=== PATIENT | male | born 1945 | race African-American/Black ===

== ENCOUNTER 2020-12-05 10:38 | Emergency (ER) | payer MEDICARE, SELFPAY ==
[2020-12-05 11:21] VITALS: BP 185/85; PULSE 62; RESP 17; TEMP 36.6; O2SAT 99; BMI 24.3
--- NOTE | 2020-12-05 11:29 | W.ED.EXTPRO ---
HPI - Extremity Problem General: Chief complaint: Extremity Injury, Lower Stated complaint: LEFT FOOT INJURY STEPPED ON NAIL Time Seen by Provider: 12/05/20 10:46 History of Present Illness: HPI Narrative: Patient stepped on nail approximately 3 hours ago and the nail went through his work boot into the sole of his foot. Patient's tetanus is not up-to-date. Complaint: other Onset (ago): hour(s) Location: left Severity scale (1-10): 1 Associated symptoms: Reports no associated symptoms; Deny fever(s) Review of Systems Const: Denies: fever(s) or chills Musc: Reports: other (Stepped on nail with left foot did have boots on.); Denies: extremity pain Psych: Denies: anxiety or depression Physical Exam Const: COMMON NORMALS: no acute distress GENERAL APPEARANCE: cooperative Psych: COMMON NORMALS: mental status grossly normal Skin: OTHER: Left foot with puncture wound lateral border sole of foot midfoot area. No active bleeding no swelling or erythema noted. No foreign body seen. Course Vital Signs: Vital signs: Vital Signs Temperature 97.9 F 12/05/20 11:21 Pulse Rate 62 12/05/20 11:21 Respiratory Rate 17 12/05/20 11:21 Blood Pressure 185/85 12/05/20 11:21 Pulse Oximetry 99 12/05/20 11:21 Discharge Plan Discharge Patient Disposition: Home Clinical Impression: Puncture wound of foot Qualifiers: Encounter type: initial encounter Laterality: left Qualified Code(s): S91.332A - Puncture wound without foreign body, left foot, initial encounter Condition: Stable Prescriptions: New Augmentin 875-125 mg tablet 1 tab PO BID Qty: 14 RF: 0 Discharge Orders: Discharge ED (Routine); Ordered 12/05/20 Ordered By: Edmundo Singer Discharge Diet: Usual diet Discharge Activity: Resume usual activity Patient Instructions: Puncture Wound in the Foot (ED) Activity Restrictions/Additional Instructions: Follow-up with medical provider as directed. Take medications as prescribed. Return to the ER or your medical provider if condition worsens. Please read and understand discharge instructions. If any questions ask please. Soak foot in Epson salts three times a day for the next few days. Coding Level of Care Code ED Customer Facilities Supervisor for Marianna George
[2020-12-05 11:31] VITALS: BP 190/97; PULSE 63; RESP 18; O2SAT 99
[2020-12-05] MEDS: tetanus-dipt-pertussis 0.5 mL SDV IM (11:40)
== END 2020-12-05 11:54 | disposition home or self-care (01) ==
PROVIDERS: Emergency Provider Nurse Practitioner Family
DX: S91.332A Puncture wound without foreign body, left foot, initial encounter (principal); W45.0XXA Nail entering through skin, initial encounter; Z23 Encounter for immunization
CPT/HCPCS: 90471; 90715; 99282

== ENCOUNTER → 2020-12-17 13:12 | Outpatient (BNVA) | payer MEDICARE, SELFPAY | PROVIDERS: PCP Internal Medicine; Visit Provider Internal Medicine | DX: I25.10 Atherosclerotic heart disease of native coronary artery without angina pectoris (principal); Z86.19 Personal history of other infectious and parasitic diseases; Z85.46 Personal history of malignant neoplasm of prostate; B19.20 Unspecified viral hepatitis C without hepatic coma; R30.0 Dysuria; C61 Malignant neoplasm of prostate; Z95.1 Presence of aortocoronary bypass graft | CPT/HCPCS: 80053; 80061; 81003; 84443; 87522; G0103 ==

== ENCOUNTER → 2020-12-20 17:23 | Outpatient (BNVA) | payer MEDICARE, SELFPAY | PROVIDERS: PCP Internal Medicine; Visit Provider Internal Medicine | DX: R30.0 Dysuria (principal); C61 Malignant neoplasm of prostate | CPT/HCPCS: 84153 ==

== ENCOUNTER → 2021-01-08 15:52 | Outpatient (BNVA) | payer MEDICARE, SELFPAY | PROVIDERS: PCP Internal Medicine; Visit Provider Internal Medicine | DX: R73.9 Hyperglycemia, unspecified (principal) | CPT/HCPCS: 83036 ==

== ENCOUNTER 2021-03-08 03:13 | Emergency (ER) | payer MEDICARE, SELFPAY ==
[2021-03-08 03:23] VITALS: BP 113/74; PULSE 96; RESP 18; TEMP 37; O2SAT 100; BMI 23.6
--- NOTE | 2021-03-08 03:35 | W.ED.MALEGU ---
HPI - Male Genitourinary General: Chief complaint: Urogenital-Male Stated complaint: unable to urinate Time Seen by Provider: 03/08/21 03:19 Source: patient Mode of arrival: ambulatory Limitations: no limitations History of Present Illness: HPI Narrative: Seen [id number] male states he has a history of enlarged prostate but has not been seen in years for that he states has been having increasing difficulty urinating states he has extreme. He states that name to strain very hard and having pain and only able to urinate a little. States pain currently is a 4 out of 10 denies any testicle pain denies any vomiting diarrhea or fever. He has never had to have a Castro in the past does not see a urologist currently. Associated symptoms: Deny nausea or vomiting Review of Systems Const: Denies: fever(s), chills, body aches or change in appetite Eyes: Denies: blurry vision or eye discomfort ENMT: Denies: throat pain or dental pain Card: Denies: chest pain Resp: Denies: dyspnea GI: Denies: abdominal pain, nausea, vomiting or diarrhea : Reports: difficulty urinating Musc: Denies: neck pain or back pain Skin/Breast: Denies: rash Neuro: Denies: headache(s) Psych: Denies: depression Inderjit/Lymph: Denies: easy bruising All/Imm: Denies: urticaria PFSH ED PFSH: Family History Mother Diabetes Sister Diabetes Social History Smoking and tobacco status: former smoker Alcohol intake: former Adopted: No Marital status: Single service: Yes History of recent travel: No Physical Exam Const: COMMON NORMALS: no acute distress, patient oriented x3 and healthy appearing HENMT: COMMON NORMALS: normocephalic and atraumatic HEAD & SCALP: normocephalic and atraumatic Eye: COMMON NORMALS: Equal, round and reactive pupils present and EOMs intact bilaterally PUPIL: Yes Equal, round and reactive pupils present Neck/C-Spine: COMMON NORMALS: full ROM and supple Chest: COMMONS NORMALS: normal inspection of the chest and normal palpation of entire chest wall Resp: COMMON NORMALS: normal respiratory effort, No retractions, No use of accessory muscles and clear to auscultation bilaterally AUSCULTATION: clear to auscultation bilaterally Cardio: COMMON NORMALS: regular rate, regular rhythm and No murmurs present (Cardio) RATE: regular rate RHYTHM: regular rhythm GI: COMMON NORMALS: Normal to inspection, nondistended, normoactive bowel sounds present, Soft to palpation, non-tender and no masses PALPATION: Yes Soft to palpation Extremity: COMMON NORMALS: normal to inspection and full ROM Neuro: COMMON NORMALS: patient oriented x3, moves all extremities and no focal motor deficits Psych: COMMON NORMALS: mental status grossly normal, Normal thought process present and cooperative THOUGHT PROCESS: Normal thought process present Skin: COMMON NORMALS: no rashes or lesions noted and no wounds GENERAL SKIN EXAM: no rashes or lesions noted Course Vital Signs: Vital signs: Vital Signs Temperature 98.6 F 03/08/21 03:23 Pulse Rate 96 03/08/21 03:23 Respiratory Rate 18 03/08/21 03:23 Blood Pressure 113/74 03/08/21 03:23 Pulse Oximetry 100 03/08/21 03:23 MDM - Male MDM Narrative: Medical decision making narrative: Patient presents here with urinary retention also with acute cystitis. We will place him on antibiotics he has a Castro in place with a leg bag we will get him follow-up with urology he also has hyperglycemia here no signs of DKA vitals are normal we will get him a primary care doctor to follow. He is return if worsening he understands agrees to plan. Lab Data: Labs: Lab Results 03/08/21 03/08/21 03:57 04:25 POC Glucose 350 mg/dL H mg/dL (70-110) Urine Color Yellow (Yellow) Urine Appearance Sl cloudy A (CLEAR) Urine pH 7 (5-7) Ur Specific Gravit y 1.010 (1.005-1.030) Urine Protein 1+ H (Negative) Urine Glucose (UA) 4+ H (Normal) Urine Ketones 2+ H (Negative) Urine Blood 2+ H (Negative) Urine Nitrate Negative (Negative) Urine Bilirubin Neg (Negative) Urine Urobilinogen Norm mg/dL mg/dL (Negative) Ur Leukocyte Idalia ase 2+ H (Negative) Urine RBC 15-25 /hpf H /hpf (0-2) Urine WBC >100 /hpf H /hpf (0-5) Ur Squamous Epith Cells 0-4 /hpf H /hpf (0-5) Amorphous Sediment Not Reportable Urine Bacteria 2+ /hpf H /hpf (NONE) Discharge Plan Discharge Patient Disposition: Home Clinical Impression: Urinary retention, Acute cystitis Condition: Stable Prescriptions: New cephalexin 500 mg capsule 500 mg PO TID 7 Days Qty: 21 RF: 0 No Action tamsulosin 0.4 mg Capsule 0.4 mg PO DAILY RF: 0 Discharge Orders: Discharge ED (Routine); Ordered 03/08/21 Ordered By: Jennifer Herrera Referrals: Jose Alberto Campa MD [Primary Care Provider] - Aditya Gill MD [Physician] - 1-3 days Discharge Diet: Advance as tolerated Discharge Activity: Resume usual activity Patient Instructions: Urinary Retention in Men (ED), Urinary Tract Infection in Men (ED) Coding Level of Care Code ED Stick Roller for Marianna Fwd Exam Comprehensive
--- NOTE | 2021-03-08 04:01 | PC.NURSE ---
patient arrival with c/o decreased urine output and reports history of prostate problems. denies other problems at this time.
[2021-03-08 04:17] LABS: Add Urine Microscopic? YES; Bilirubin Urine Neg (Negative); Blood Urine 2+ (Negative); Glucose Urine UA 4+ (Normal); Ketones Urine 2+ (Negative); Leukocyte Esterase Urine 2+ (Negative); Nitrate Urine Negative (Negative); Protein Urine 1+ (Negative); Urine Color Yellow (Yellow); Urobilinogen Urine Norm (Negative); pH Urine 7 (5-7)
[2021-03-08 04:19] LABS: Add Urine Culture? Yes; Bacteria Urine 2+ /hpf; RBC Urine 15-25 /hpf (0-2); Squamous Epithelial Cell Urine 0-4 /hpf (0-5); WBC Urine >100 /hpf (0-5)
[2021-03-08 04:28] LABS: Glucose Point of Care 350 mg/dL (70-110)
--- NOTE | 2021-03-10 10:15 | DCPLANNER ---
senior national account manager had message to schedule a follow up appointment for patient with Dr. Gill. senior national account manager emailed patients information to Marcio Teixeira and Julie at the office of Dr. Gill. Patients information will be printed and reviewed. Clinic will call patient with appointment information.
--- NOTE | 2021-03-10 11:56 | DCPLANNER ---
shelter case manager had message to speak with patient about getting established with a primary care physician. shelter case manager called phone number [phone], unable to speak with patient at this time. shelter case manager did leave a voicemail for patient to return case coordinator phone call.
--- NOTE | 2021-03-11 06:55 | DCPLANNER ---
Addendum entered by Ciara Orantes 03/28/21 11:22: Patient had a follow up appointment scheduled for 03.24.[address] Gill - patient did attend appointment. Original Note: Patient has a follow up appointment scheduled for Wednesday, March 24, 2021 at 9:[address] Gill. Clinic will call patient with appointment information.
== END 2021-03-08 04:39 | disposition home or self-care (01) ==
PROVIDERS: Emergency Provider Emergency Medicine; PCP Internal Medicine
DX: N30.00 Acute cystitis without hematuria (principal); R33.9 Retention of urine, unspecified; Z87.891 Personal history of nicotine dependence
CPT/HCPCS: 36416; 51702; 81001; 82962; 87077; 87086; 87186; 99283

== ENCOUNTER → 2021-04-09 09:39 | Outpatient (BNVA) | payer MEDICARE, SELFPAY | PROVIDERS: Visit Provider Nurse Practitioner Family | DX: C61 Malignant neoplasm of prostate (principal) | CPT/HCPCS: 84153 ==

== ENCOUNTER → 2021-04-14 13:24 | Outpatient (BNVA) | payer MEDICARE, SELFPAY | PROVIDERS: Visit Provider Urology | DX: R39.9 Unspecified symptoms and signs involving the genitourinary system (principal); C61 Malignant neoplasm of prostate | CPT/HCPCS: 81003 ==

== ENCOUNTER 2021-04-30 14:32 | Outpatient (CLI) | payer MEDICARE, SELFPAY ==
--- NOTE | 2021-04-30 17:06 | ONC CON_ITS ---
Dr. Fields New Patient Note Patient: Tad Archer Unit #: [id number]: 1945 Dicatated By: Brandi Fields M.D.Date of Visit: Apr 30, 2021 Onc MED New Patient/Consult Referring Physician: Marisol Valles Dr., M.D. History of Present Illness: Mr. Tad Archer, is a 75-year-old -Malag[place] gentleman with history of Hepatitis C and prostate cancer, initially diagnosed in 2004 Armen 3+3 = 6,/12 gland, bilateral involvement, status post 3-D FURNITURE RENTAL CONSULTANT to a total dose of 7560 cGy completed in October 2004 in [facility]. He recurred in 2014 with biopsy confirmation of recurrent disease 4+5 =9 in 6 out of 6 cores and negative metastatic workup status post Eligard ???1 given in May 2015 but patient 12 severe hot flashes and he decided not to take anymore. He deferred care until May 2016 when he was started on bicalutamide patient took it for 3 days then stopped taking it but restart taking on 08/16/2016 then he was started on Eligard on 09/07/2016 plan was to give him every six-months and in the meantime patient stopped taking bicalutamide because of gynecomastia Patient lives in [place] so he was having transportation problem in getting to [place] from here and decided to establish care here in [place].,And [facility] [place] till November 09, 2017 and then lost follow-up, as per patient he was trying alternate/herbs therapy and was obtaining certain medications from [facility] and other places, he does remember the names but has tried so many different agents to 'clean' his prostate cancer, as per patient initially it helped him, he was feeling well but around 2020 he started having problem with urination and it was progressive to the point, in February 2021 he could not 'pee' anymore and decided to go to [facility] where he was evaluated and diagnosed with cystitis and treated with ciprofloxacin as urine culture grew Enterococcus, and he was also prescribed tamsulosin and Castro's cath with bag was placed in for 2 weeks and patient was referred to Dr. Gill, urologist for further evaluation and as per urology note his PSA checked in November 2020 was 116, On April 14, 2020 he underwent cystoscopy which showed prostatic architecture is not significantly changed. 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 And he was advised to continue self-catheterization along with a daily tamsulosin and was [facility] regarding progressive PSA. Today denies any specific complaints, no fever chills, no nausea or vomiting, no diarrhea or constipation, no dysuria or hematuria patient does self-catheterization 3-4 times a day, tolerating well. Denies any new bony pains denies any abdominal pain or fullness, complaining of 5 pounds weight loss but appetite is reasonable., Last time patient was seen in the clinic in July 2017 and was supposed to come back in 3 months but patient lost follow-up, as per patient he was trying alternative therapy and herbs. . Past Medical History: There is no documented medical history. Past Surgical History: Mr. Archer's surgical/procedural history consists of coronary artery bypass in 2007 and foot surgery in 1993. Medications: Ciprofloxacin HCl 1 Tablet (of 500 mg) Oral b.i.d. for 14 days, Tamsulosin HCl (0.4 mg) Capsule Oral daily Allergies: contrast dye Social History: Mr. Archer is single and he is retired. Mr. Archer quit smoking 28 years ago but had smoked 0.5 packs/day for 15 years. He is a former drinker. Family History: Mr. Archer's mother at age 80: diabetes. Mr. Archer's father at age 78: heart disease. Review Of Symptoms: Review of Systems is not available for this patient. Vital Signs: Performed on Apr 30, 2021 15:34: 7, 0, 23.98, 1.89 sq.m, 69 in (LOW), 96 %, 80 /min, 18 /min, 124/78 mm(hg), 98.7 F, and 162.4 lbs (LOW). Performance Status: 0 - Fully active, able to carry on all predisease activities without restrictions. (ECOG) Physical Examination: ENMT - No mouth sores, no thrush, no jaundice, Respiratory - Lungs are clear to auscultation, Cardiovascular - Regular rate and rhythm of heart, Abdomen - Soft, bowel sounds present, nontender, Extremities - No visible edema. Lab/Imaging: Most recent lab results are not available for this patient. Impression: Biochemical recurrence with progressive PSA PSA checked in November 2020 was 116 and repeat in March 2021 was 137, Compared to 57.60 on August 09, 2017 after that patient lost follow-up till April 2021, As patient was trying alternative/herbal therapy Prostrate cancer diagnosed in 2004 status post EB RT with 3-D conformal plan in 2014, 7560cGy completed in October 2004 Recurrence with PSA 29 in in November 2014 prostrate biopsy confirmed local recurrence with high risk prostate cancer but metastatic workup was negative Given involvement of seminal vesicle, it was decided he was a poor candidate for brachytherapy. Started on Eligard in May 2015 he took one injection and second injection was due in 6 month in November 2015 but patient refused due to hot flashes. And he was also refusing bicalutamide [place] 08/16/2016 when he started taking it but then later on stopped taking it again due to gynecomastia but took another Eligard on 09/07/2016 and next 6 monthly dose was due in February 2017 but patient did not take it. PSA checked on 04/13/2017 was 30.80 PSA checked on 05/11/[address] scan of abdomen pelvis done on 12/03/2016 showed some questionable enlarged lymph nodes and bone scan was negative Hepatitis C , on vosevi CT scan of abdomen pelvis done on 08/05/2017 showed no abdominal or pelvic lymphadenopathy and no osteoblastic bone disease and no other abnormal mass seen. Bone scan done on 08/05/2017 showed no evidence of osseous metastatic disease PSA checked on 08/05/2017 57.67 compared to 55.70 on 07/06/2017 Plan: Discussed with patient regarding his concerns about progressive PSA and now with urinary retention requiring repeated self-catheterization, Since his last visit to cancer center in July 2017, patient was trying alternative/herbal therapy until recently when he developed acute urinary obstruction for which he went to [facility], where he was diagnosed with urine tract infection with Enterococcus and treated with ciprofloxacin and Castro's cath with the back for 2 weeks subsequently underwent cystoscopy which showed mild radiation cystitis type changes but nothing severe., At this point, we will consider CT scan of chest ,abdomen pelvis and bone scan to assess disease status and repeat CBC, CMP, PSA and testosterone level and As his follow-up PSA level shows evidence of disease progression, we will start him on treatment with Zoladex 10.8 mg IM every 3 months along with abiraterone 250 mg p.o. daily and prednisone 5 mg p.o. twice a day, all the side effect possible benefits associated with Zoladex/abiraterone/prednisone was discussed in detail including but not limited to hot flashes, mood swings,Gynecomastia, fluid retention, diarrhea especially with abiraterone, hyperglycemia specially with prednisone, electrolyte imbalance with abiraterone, were mentioned further teaching will be done by chemotherapy nurse, will obtain approval from his insurance. Patient return to clinic in 3 weeks with above-mentioned work-up including CT scan of chest abdomen pelvis/bone scan/PSA/testosterone level and CBC CMP. Signed By: Brandi Fields M.D. <<Signature on File>>
[2021-04-30 17:09] LABS: Basophils % 0.5 %; Eosinophils # 0.2 10^3/uL (0.0-0.8); Eosinophils % 2.4 %; Hematocrit 44.2 % (42.0-52.0); Hemoglobin 14.6 g/dL (11.7-16.6); Lymphocytes % 37.3 %; Mean Corpuscular Hemoglobin 29.3 pg (28.0-34.0); Mean Corpuscular Volume 88.8 fl (80-94); Mean Platelet Volume 11.9 fL (7.4-10.4); Monocytes # 0.5 10^3/uL (0.2-0.9); Monocytes % 6.2 %; Neutrophils # 4.31 10^3/uL (1.8-7.7); Neutrophils % 53.4 %; Nucleated Red Blood Cells % 0 %; Platelet Count 225 10^3/cmm (130-400); Red Blood Count 4.98 10^6/uL (4.1-5.3); Red Cell Distribution Width 12.7 % (12.1-15.1); White Blood Count 8.1 10^3/uL (4.0-10.0)
[2021-04-30 17:45] LABS: Alanine Aminotransferase 18 U/L (0-41); Albumin Level 4.6 g/dL (3.5-5.2); Alkaline Phosphatase 119 IU/L (40-130); Anion Gap 13.6 (5-19); Aspartate Amino Transferase 17 U/L (0-40); Blood Urea Nitrogen 11 mg/dL (8-23); Calcium 10.5 mg/dL (8.5-10.5); Carbon Dioxide 28 mmol/L (22-29); Chloride 98 mmol/L (98-107); Globulin 2.8 g/dL (1.3-4.6); Glucose 360 mg/dL (65-115); Osmolality Calculated 294 mOsm/kg (285-295); Potassium 4.6 mmol/L (3.5-5.1); Sodium 135 mmol/L (136-145); Testosterone Total 353.9 ng/dL (193-740); Total Bilirubin 0.5 mg/dL (0.15-1.2); Total Protein 7.4 g/dL (6.6-8.7)
== END 2021-04-30 14:33 | disposition home or self-care (01) ==
PROVIDERS: PCP Internal Medicine; Visit Provider Internal Medicine Hematology & Oncology
DX: C61 Malignant neoplasm of prostate (principal); R59.1 Generalized enlarged lymph nodes; B17.9 Acute viral hepatitis, unspecified; Z79.899 Other long term (current) drug therapy
CPT/HCPCS: 80053; 84153; 84403; 85025; 99205

== ENCOUNTER 2021-05-16 07:56 | Outpatient (CLI) | payer MEDICARE, SELFPAY ==
--- NOTE | 2021-05-16 08:02 | CTR_ITS ---
PROCEDURE INFORMATION: Exam: CT Chest With Contrast; Diagnostic Exam date and time: 05/16/2021 9:44 AM Age: 75 years old Clinical indication: Condition or disease; Other: Assess disease status; Primary cancer: Gentleman with history of hepatitis c and prostate cancer, . initially diagnosed in 2004 valentino 3+3 = 6, /12 gland, bilateral involvement, . status post 3-d welt rougher to a total dose of 7560 cgy completed in October 2004; He recurred in 2014 with biopsy confirmation of recurrent. Disease 4+5 =9 in 6 out of 6 cores and negative metastatic workup status post. Eligard ?1 given in May 2015 but patient 12 severe hot flashes and he decided. Not to take anymore. He deferred care until May 2016 when he was started on. Bicalutamide patient took it for 3 days then stopped taking it but restart. Taking on 08/16/2016 then he was started on eligard on 09/07/2016 plan was to. Give him every six-months and in the meantime patient stopped taking. Bicalutamide because of gynecomastia; Follow-up oncological assessment; Prior surgery; Surgery date: 6+ months; Surgery type: Coronary artery bypass in 2007; Patient HX: Disease process TECHNIQUE: Imaging protocol: Diagnostic computed tomography of the chest with contrast. Sagittal and coronal reformatted images were created and reviewed. Radiation optimization: All CT scans at this facility use at least one of these dose optimization techniques: automated exposure control; mA and/or kV adjustment per patient size (includes targeted exams where dose is matched to clinical indication); or iterative reconstruction. Contrast material: OMNI 300; Contrast volume: 95 ml; Contrast route: INTRAVENOUS (IV); COMPARISON: 1. CT abdomen pelvis wo con [id number] 08/05/2017 8:[address] abdomen pelvis w con* [id number] 12/03/2016 9:14 AM RADIATION DOSE METRICS: Total DLP (mGy-cm): 1615.18 FINDINGS: Thyroid: Multiple heterogenous heterogenous nodules in both thyroid lobes, the largest is in the right lobe and measures 2.7 x 2.6 cm (series 3, image 4). Trachea: Tracheobronchial structures are patent. Lungs: Lungs are clear bilaterally. No pulmonary parenchymal nodules or masses. Pleural spaces: No pneumothorax. No pleural effusion. Heart: Mild enlargement of the heart. Extensive atherosclerotic calcification in the coronary arteries. Esophagus: The esophagus is unremarkable. Mediastinal space: No mediastinal hematoma. No pneumomediastinum. Pulmonary arteries: Pulmonary arteries are unremarkable. Aorta: Mild atherosclerotic changes in the visualized arteries. No evidence for aortic aneurysm or aortic dissection. Veins: Pulmonary veins are unremarkable. Lymph nodes: No lymphadenopathy. Bones/joints: Poststernotomy changes in the chest. Mild degenerative changes in the visualized spine. No lytic or sclerotic bony lesions. Soft tissues: No acute abnormality in the extrathoracic soft tissues. COMMENTS: Consistent with the [employer]'s Incidental Findings Committee white paper (J Am Kezia Radiol 2015): In patients aged 35 years and older with an incidental thyroid nodule equal to or greater than 1.[address], MRI or extrathyroidal US, further evaluation with dedicated thyroid US is recommended for patients with normal life expectancy and without comorbidities. For smaller nodules without suspicious features, no further evaluation or follow up is recommended. PROCEDURE INFORMATION: Exam: CT Abdomen And Pelvis With Contrast Exam date and time: 05/16/2021 9:44 AM Age: 75 years old Clinical indication: Condition or disease; Other: Assess disease status; Primary cancer: Gentleman with history of hepatitis c and prostate cancer, . initially diagnosed in 2004 valentino 3+3 = 6, /12 gland, bilateral involvement, . status post 3-d welt rougher to a total dose of 7560 cgy completed in October 2004; He recurred in 2014 with biopsy confirmation of recurrent. Disease 4+5 =9 in 6 out of 6 cores and negative metastatic workup status post. Eligard ?1 given in May 2015 but patient 12 severe hot flashes and he decided. Not to take anymore. He deferred care until May 2016 when he was started on. Bicalutamide patient took it for 3 days then stopped taking it but restart. Taking on 08/16/2016 then he was started on eligard on 09/07/2016 plan was to. Give him every six-months and in the meantime patient stopped taking. Bicalutamide because of gynecomastia; Follow-up oncological assessment; Prior surgery; Surgery date: 6+ months; Surgery type: Coronary artery bypass in 2007; Patient HX: Disease process TECHNIQUE: Imaging protocol: Computed tomography of the abdomen and pelvis with contrast. The patient was administered oral contrast. Radiation optimization: All CT scans at this facility use at least one of these dose optimization techniques: automated exposure control; mA and/or kV adjustment per patient size (includes targeted exams where dose is matched to clinical indication); or iterative reconstruction. Contrast material: OMNI 300; Contrast volume: 95 ml; Contrast route: INTRAVENOUS (IV); COMPARISON: 1. CT abdomen pelvis wo con [id number] 08/05/2017 8:[address] abdomen pelvis w con* [id number] 12/03/2016 9:14 AM RADIATION DOSE METRICS: Total DLP (mGy-cm): 1615.18 FINDINGS: Liver: Interval development of diffuse, mildly decreased attenuation in the liver. Findings are consistent with mild fatty infiltration. Gallbladder and bile ducts: The gallbladder is unremarkable. No biliary ductal dilatation. Pancreas: The pancreas is unremarkable. No pancreatic ductal dilatation. Spleen: The spleen is unremarkable. Adrenal glands: The right and left adrenal glands are unremarkable. Kidneys and ureters: The right and left kidneys are unremarkable. The right and left ureters are unremarkable. Stomach and bowel: Scattered diverticula in the colon. No evidence for diverticulitis. No acute abnormality in the small bowel. No acute abnormality in the stomach. Appendix: The appendix is visualized and is unremarkable. No findings to suggest acute appendicitis. Intraperitoneal space: No free intraperitoneal air. No ascites. No loculated fluid collections to suggest an abscess. Vasculature: Stable mild atherosclerotic calcifications in the visualized arteries. No evidence for aortic aneurysm or aortic dissection. Hepatic veins, portal veins, splenic vein, and SMV are patent. Lymph nodes: No lymphadenopathy. Urinary bladder: Diffuse, mild wall thickening of the bladder. Reproductive: Stable mild enlargement of the prostate gland. Bones/joints: Multilevel degenerative changes of varying severity in the visualized spine. Mild degenerative changes at both the right and left hips. No lytic or sclerotic bony lesions. Soft tissues: No acute abnormality in the extra-abdominal soft tissues. CT/CT chest abd pel w con* IMPRESSION: 1. No acute cardiopulmonary process. 2. Multiple thyroid nodules.Follow-up non-emergent thyroid ultrasound is recommended if these have not previously been evaluated. 3. No evidence for metastatic disease in the chest. 4. Incidental/nonacute findings are listed in the report. IMPRESSION: 1. Interval development of mild fatty infiltration of the liver. 2. Diffuse, mild wall thickening of the bladder. In the correct clinical setting, this may suggest cystitis. Recommend correlation with laboratory findings. Alternatively, this may be secondary to chronic outlet obstruction. 3. Stable mild enlargement of the prostate gland. 4. Scattered diverticula in the colon. No evidence for diverticulitis. 5. No evidence for metastatic disease in the abdomen or pelvis. 6. Incidental/nonacute findings are listed in the report.
[2021-05-16] MEDS: iohexol 300 mg/mL 50 mL Btl PO (08:19)
[2021-05-16] MEDS: iohexol 300 mg/mL 100 mL Btl IV (09:45)
== END 2021-05-16 07:57 | disposition home or self-care (01) ==
LOC: RAD 07:58
PROVIDERS: PCP Internal Medicine; Visit Provider Internal Medicine Hematology & Oncology
DX: C61 Malignant neoplasm of prostate (principal); K76.0 Fatty (change of) liver, not elsewhere classified; N40.0 Benign prostatic hyperplasia without lower urinary tract symptoms; K57.92 Diverticulitis of intestine, part unspecified, without perforation or abscess without bleeding
CPT/HCPCS: 71260; 74177

== ENCOUNTER 2021-05-26 10:38 | Outpatient (CLI) | payer MEDICARE, SELFPAY ==
[2021-05-26] MEDS: lidocaine 1% INJ 20 mL INJECTION (12:15)
[2021-05-26] MEDS: goserelin acetate 10.8 mg Implant SUBCUT (12:20)
[2021-05-26 12:34] LABS: Basophils # 0.1 10^3/uL (0.0-0.1); Basophils % 0.6 %; Eosinophils # 0.3 10^3/uL (0.0-0.8); Eosinophils % 3.1 %; Hematocrit 46.9 % (42.0-52.0); Hemoglobin 15.2 g/dL (11.7-16.6); Lymphocytes # 3.1 10^3/uL (0.8-4.8); Lymphocytes % 38.4 %; Mean Corpuscular HGB Conc 32.4 g/dL (30.0-36.0); Mean Corpuscular Hemoglobin 28.9 pg (28.0-34.0); Mean Corpuscular Volume 89.2 fl (80-94); Mean Platelet Volume 11.2 fL (7.4-10.4); Monocytes # 0.5 10^3/uL (0.2-0.9); Monocytes % 5.6 %; Neutrophils # 4.14 10^3/uL (1.8-7.7); Neutrophils % 51.8 %; Nucleated Red Blood Cells % 0 %; Platelet Count 226 10^3/cmm (130-400); Red Blood Count 5.26 10^6/uL (4.1-5.3); Red Cell Distribution Width 12.7 % (12.1-15.1)
[2021-05-26 12:56] LABS: Estmated Average Glucose 332; Hemoglobin A1C 13.2 % (4.0-6.0)
[2021-05-26 12:59] LABS: Alanine Aminotransferase 18 U/L (0-41); Albumin Level 4.6 g/dL (3.5-5.2); Alkaline Phosphatase 143 IU/L (40-130); Blood Urea Nitrogen 6 mg/dL (8-23); Calcium 10.2 mg/dL (8.5-10.5); Carbon Dioxide 28 mmol/L (22-29); Chloride 100 mmol/L (98-107); Globulin 2.8 g/dL (1.3-4.6); Glucose 319 mg/dL (65-115); Osmolality Calculated 292 mOsm/kg (285-295); Sodium 136 mmol/L (136-145); Total Bilirubin 0.8 mg/dL (0.15-1.2); Total Protein 7.4 g/dL (6.6-8.7)
[2021-05-26 13:11] LABS: Anion Gap 12.8 (5-19); Aspartate Amino Transferase 20 U/L (0-40); Potassium 4.8 mmol/L (3.5-5.1)
--- NOTE | 2021-05-30 08:20 | ONC FU_ITS ---
Florina Osullivan Progress Note Patient: Tad Archer Unit #: [id number]: 1945 Dicatated By: Florina Osullivan N.P.Date of Visit:May 26, 2021 Onc MED Follow-up/Prog Note Chief Complaint: Prostrate cancer History of Present Illness: Mr. Tad Archer, is a 75-year-old -[place] gentleman with history of Hepatitis C and prostate cancer, initially diagnosed in 2004 [place] 3+3 = 6,/12 gland, bilateral involvement, status post 3-D AREA COUNSELOR to a total dose of 7560 cGy completed in October 2004 in [facility]. He recurred in 2014 with biopsy confirmation of recurrent disease 4+5 =9 in 6 out of 6 cores and negative metastatic workup status post Eligard ???1 given in May 2015 but patient 12 severe hot flashes and he decided not to take anymore. He deferred care until May 2016 when he was started on bicalutamide patient took it for 3 days then stopped taking it but restart taking on 08/16/2016 then he was started on Eligard on 09/07/2016 plan was to give him every six-months and in the meantime patient stopped taking bicalutamide because of gynecomastia Patient lives in [place] so he was having transportation problem in getting to [place] from here and decided to establish care here in [place].,And [facility] [place] till November 09, 2017 and then lost follow-up, as per patient he was trying alternate/herbs therapy and was obtaining certain medications from [facility] and other places, he does remember the names but has tried so many different agents to 'clean' his prostate cancer, as per patient initially it helped him, he was feeling well but around 2020 he started having problem with urination and it was progressive to the point, in February 2021 he could not 'pee' anymore and decided to go to [facility] where he was evaluated and diagnosed with cystitis and treated with ciprofloxacin as urine culture grew Enterococcus, and he was also prescribed tamsulosin and Castro's cath with bag was placed in for 2 weeks and patient was referred to Dr. Gill, urologist for further evaluation and as per urology note his PSA checked in November 2020 was 116, On April 14, 2020 he underwent cystoscopy which showed prostatic architecture is not significantly changed. 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 And he was advised to continue self-catheterization along with a daily tamsulosin and was [facility] regarding progressive PSA. Patient presents today for education on abiraterone. He denies any problems. No weakness or fatigue. His appetite has been good. No fever, chills, night sweats. No sinus drainage or mouth sores. No shortness of breath, cough, chest pain. No GI problems. He continues self catheterizations 4-5 times per day. No joint or bone pain. No headaches or dizziness. Review Of Symptoms: See above. Past Medical History: There is no documented medical history. Past Surgical History: Covid booster - CRAiLAR in 2021 Coronary artery bypass in 2007 Foot surgery in 1993 Allergies: contrast dye Medications: Tamsulosin HCl (0.4 mg) Capsule Oral daily Family History: Mr. Archer's mother at age 80: diabetes. Mr. Archer's father at age 78: heart disease. Social History: Mr. Archer is single and he is retired. Mr. Archer quit smoking 28 years ago but had smoked 0.5 packs/day for 15 years. He is a former drinker. Physical Examination: Performed on May 26, 2021 10:55: Height - 69.00 in, Weight - 162.6 lbs (HIGH), BSA - 1.89 sq.m, BMI - 24.01, Temperature - 98.0 F (LOW), Pulse - 64 /min, Respiration - 16 /min, BP - 144/84 mm(hg) (HIGH), O2 Sat - 99 %, Pain - 0, and Fatigue - 4. Performance Status: 0 - Fully active, able to carry on all predisease activities without restrictions. (ECOG) Constitutional Alert, cooperative, oriented. Mood and affect appropriate. Appears close to chronological age. Well nourished. Well developed. Head Normocephalic; no scars. Respiratory Lungs are clear to auscultation without rhonchi or wheezing. Cardiovascular Regular rate and rhythm of heart without murmurs, gallops or rubs. Abdomen Non-tender, non-distended, no masses, ascites or hepatosplenomegaly. Good bowel sounds. No guarding or rebound tenderness. Extremities No visible deformities, no cyanosis, clubbing or edema. Pulses 3+ and equal bilaterally. Musculoskeletal No tenderness or swelling, normal range of motion without obvious weakness. Psychiatric Alert and oriented times three. Coherent speech. Verbalizes understanding of our discussions today. Laboratory: Test performed on May 26, 2021 12:20 Sodium 136 mmol/L Potassium 4.8 mmol/L Chloride 100 mmol/L Est Avg Glucose (eAG) 332 mg/dL CO2 28 mmol/L Anion Gap 12.8 BUN 6 mg/dL Creatinine 0.8 mg/dL Cr Clearance (Est) 83.2300 mL/min Glucose 319 mg/dL Osmolality - Calculated 292 mOsm/kg Calcium 10.2 mg/dL Protein, Total 7.4 g/dL Albumin 4.6 g/dL Globulin 2.8 g/dL Bilirubin, Total 0.8 mg/dL ALT (SGPT) 18 U/L AST (SGOT) 20 U/L Alkaline Phosphatase 143 IU/L Hemoglobin A1C % 13.2 % WBC 8.0 10 3/uL RBC 5.26 10 6/uL HGB 15.2 g/dL HCT 46.9 % MCV 89.2 fl MCH 28.9 pg MCHC 32.4 g/dL RDW 12.7 % Platelet Count 226 10 3/cmm MPV 11.2 fL Neutrophils 4.14 10 3/uL Lymphocytes 3.1 10 3/uL Monocytes 0.5 10 3/uL Eosinophils 0.3 10 3/uL Basophils 0.1 10 3/uL Neutrophil % 51.8 % Lymphocyte % 38.4 % Monocyte % 5.6 % Eosinophil % 3.1 % Basophils % 0.6 % NRBC % 0 % PSA 135.800 ng/mL Impression: Biochemical recurrence with progressive PSA PSA checked in November 2020 was 116 and repeat in March 2021 was 137, Compared to 57.60 on August 09, 2017 after that patient lost follow-up till April 2021, As patient was trying alternative/herbal therapy Prostrate cancer diagnosed in 2004 status post EB RT with 3-D conformal plan in 2014, 7560cGy completed in October 2004 Recurrence with PSA 29 in in November 2014 prostrate biopsy confirmed local recurrence with high risk prostate cancer but metastatic workup was negative Given involvement of seminal vesicle, it was decided he was a poor candidate for brachytherapy. Started on Eligard in May 2015 he took one injection and second injection was due in 6 month in November 2015 but patient refused due to hot flashes. And he was also refusing bicalutamide [place] 08/16/2016 when he started taking it but then later on stopped taking it again due to gynecomastia but took another Eligard on 09/07/2016 and next 6 monthly dose was due in February 2017 but patient did not take it. PSA checked on 04/13/2017 was 30.80 PSA checked on 05/11/[address] scan of abdomen pelvis done on 12/03/2016 showed some questionable enlarged lymph nodes and bone scan was negative Hepatitis C , on vosevi CT scan of abdomen pelvis done on 08/05/2017 showed no abdominal or pelvic lymphadenopathy and no osteoblastic bone disease and no other abnormal mass seen. Bone scan done on 08/05/2017 showed no evidence of osseous metastatic disease PSA checked on 08/05/2017 57.67 compared to 55.70 on 07/06/2017 Plan: Discussed with patient regarding his concerns about progressive PSA and now with urinary retention requiring repeated self-catheterization, Since his last visit to cancer center in July 2017, patient was trying alternative/herbal therapy until recently when he developed acute urinary obstruction for which he went to [facility], where he was diagnosed with urine tract infection with Enterococcus and treated with ciprofloxacin and Castro's cath with the back for 2 weeks subsequently underwent cystoscopy which showed mild radiation cystitis type changes but nothing severe., At this point, we will consider CT scan of chest ,abdomen pelvis and bone scan to assess disease status and repeat CBC, CMP, PSA and testosterone level and As his follow-up PSA level shows evidence of disease progression, we will start him on treatment with Zoladex 10.8 mg IM every 3 months along with abiraterone 250 mg p.o. daily and prednisone 5 mg p.o. twice a day He presents today for education on abiraterone 250 mg p.o. daily along with prednisone 5 mg p.o. twice a day. Handouts were provided along with side effects including hyperglycemia. Patient is a type II diabetic that is not controlled and not being treated. Prior to starting treatment with abiraterone his type 2 diabetes needs to be a little better controlled. We will start him on a sliding scale insulin along with Lantus 10 units at bedtime. Education was provided about diabetes and how to use Accu-Chek machine and how to administer insulin. Patient will return to the clinic on 05/30/2021 to reassess blood glucose levels. DATE OF ADDENDUM: 05/30/2021 ADDENDUM: Hemoglobin A1c was checked and is 13.2 Signed By: Florina Osullivan N.P. <<Signature on File>>
== END 2021-05-26 10:39 | disposition home or self-care (01) ==
PROVIDERS: PCP Internal Medicine; Visit Provider Nurse Practitioner Family
DX: C61 Malignant neoplasm of prostate (principal); B19.20 Unspecified viral hepatitis C without hepatic coma; E11.9 Type 2 diabetes mellitus without complications; Z79.899 Other long term (current) drug therapy; Z95.1 Presence of aortocoronary bypass graft
CPT/HCPCS: 80053; 83036; 84153; 85025; 96372; 96402; 99215; J9202

== ENCOUNTER 2021-05-30 08:37 | Outpatient (CLI) | payer MEDICARE, SELFPAY ==
--- NOTE | 2021-06-01 15:08 | ONC FU_ITS ---
Florina Osullivan Progress Note Patient: Tad Archer Unit #: [id number]: 1945 Dicatated By: Florina Osullivan N.P.Date of Visit:May 30, 2021 Onc MED Follow-up/Prog Note Chief Complaint: Prostrate cancer History of Present Illness: Mr. Tad Archer, is a 75-year-old -[place] gentleman with history of Hepatitis C and prostate cancer, initially diagnosed in 2004 [place] 3+3 = 6,/12 gland, bilateral involvement, status post 3-D PALEONTOLOGICAL HELPER to a total dose of 7560 cGy completed in October 2004 in [facility]. He recurred in 2014 with biopsy confirmation of recurrent disease 4+5 =9 in 6 out of 6 cores and negative metastatic workup status post Eligard ???1 given in May 2015 but patient 12 severe hot flashes and he decided not to take anymore. He deferred care until May 2016 when he was started on bicalutamide patient took it for 3 days then stopped taking it but restart taking on 08/16/2016 then he was started on Eligard on 09/07/2016 plan was to give him every six-months and in the meantime patient stopped taking bicalutamide because of gynecomastia Patient lives in [place] so he was having transportation problem in getting to [place] from here and decided to establish care here in [place].,And continue [facility] [place] till November 09, 2017 and then lost follow-up, as per patient he was trying alternate/herbs therapy and was obtaining certain medications from [facility] and other places, he does remember the names but has tried so many different agents to 'clean' his prostate cancer, as per patient initially it helped him, he was feeling well but around 2020 he started having problem with urination and it was progressive to the point, in February 2021 he could not 'pee' anymore and decided to go to [facility] where he was evaluated and diagnosed with cystitis and treated with ciprofloxacin as urine culture grew Enterococcus, and he was also prescribed tamsulosin and Castro's cath with bag was placed in for 2 weeks and patient was referred to Dr. Gill, urologist for further evaluation and as per urology note his PSA checked in November 2020 was 116, On April 14, 2020 he underwent cystoscopy which showed prostatic architecture is not significantly changed. 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 And he was advised to continue self-catheterization along with a daily tamsulosin and was [facility] regarding progressive PSA. Patient presents today for follow-up on his blood glucose levels. He is currently taking sliding scale insulin and Lantus at 10 units at bedtime. He states he is feeling well and he is trying to follow a diabetic diet. He denies weakness or fatigue. No fever, chills, night sweats. No shortness of breath or cough. No chest pain. No GI problems. He self caths 4-5 times per day. He denies joint or bone pain. No headaches or dizziness. . Review Of Symptoms:Review of Systems is not available for this patient. Past Medical History: There is no documented medical history. Past Surgical History: Covid [employer] - [employer] in 2021 Coronary artery bypass in 2007 Foot surgery in 1993 Allergies: contrast dye Medications: Tamsulosin HCl (0.4 mg) Capsule Oral daily Family History: Mr. Archer's mother at age 80: diabetes. Mr. Archer's father at age 78: heart disease. Social History: Mr. Archer is single and he is retired. Mr. Archer quit smoking 28 years ago but had smoked 0.5 packs/day for 15 years. He is a former drinker. Physical Examination: Performed on May 30, 2021 09:32: Height - 69.00 in, Weight - 166.8 lbs (HIGH), BSA - 1.91 sq.m, BMI - 24.63, Temperature - 98.4 F, Pulse - 60 /min, Respiration - 18 /min, BP - 158/89 mm(hg) (HIGH), O2 Sat - 99 %, Pain - 3, and Fatigue - 4. Performance Status: 0 - Fully active, able to carry on all predisease activities without restrictions. (ECOG) Constitutional Alert, cooperative, oriented. Mood and affect appropriate. Appears close to chronological age. Well nourished. Well developed. Head Normocephalic; no scars. Respiratory Lungs are clear to auscultation without rhonchi or wheezing. Cardiovascular Regular rate and rhythm of heart without murmurs, gallops or rubs. Gastrointestinal Musculoskeletal No tenderness or swelling, normal range of motion without obvious weakness. Psychiatric Alert and oriented times three. Coherent speech. Verbalizes understanding of our discussions today. Laboratory: Test performed on May 26, 2021 12:20 Sodium 136 mmol/L Potassium 4.8 mmol/L Chloride 100 mmol/L Est Avg Glucose (eAG) 332 mg/dL CO2 28 mmol/L Anion Gap 12.8 BUN 6 mg/dL Creatinine 0.8 mg/dL Cr Clearance (Est) 83.2300 mL/min Glucose 319 mg/dL Osmolality - Calculated 292 mOsm/kg Calcium 10.2 mg/dL Protein, Total 7.4 g/dL Albumin 4.6 g/dL Globulin 2.8 g/dL Bilirubin, Total 0.8 mg/dL ALT (SGPT) 18 U/L AST (SGOT) 20 U/L Alkaline Phosphatase 143 IU/L Hemoglobin A1C % 13.2 % WBC 8.0 10 3/uL RBC 5.26 10 6/uL HGB 15.2 g/dL HCT 46.9 % MCV 89.2 fl MCH 28.9 pg MCHC 32.4 g/dL RDW 12.7 % Platelet Count 226 10 3/cmm MPV 11.2 fL Neutrophils 4.14 10 3/uL Lymphocytes 3.1 10 3/uL Monocytes 0.5 10 3/uL Eosinophils 0.3 10 3/uL Basophils 0.1 10 3/uL Neutrophil % 51.8 % Lymphocyte % 38.4 % Monocyte % 5.6 % Eosinophil % 3.1 % Basophils % 0.6 % NRBC % 0 % PSA 135.800 ng/mL Impression: Biochemical recurrence with progressive PSA PSA checked in November 2020 was 116 and repeat in March 2021 was 137, Compared to 57.60 on August 09, 2017 after that patient lost follow-up till April 2021, As patient was trying alternative/herbal therapy Prostrate cancer diagnosed in 2004 status post EB RT with 3-D conformal plan in 2014, 7560cGy completed in October 2004 Recurrence with PSA 29 in in November 2014 prostrate biopsy confirmed local recurrence with high risk prostate cancer but metastatic workup was negative Given involvement of seminal vesicle, it was decided he was a poor candidate for brachytherapy. Started on Eligard in May 2015 he took one injection and second injection was due in 6 month in November 2015 but patient refused due to hot flashes. And he was also refusing bicalutamide [place] 08/16/2016 when he started taking it but then later on stopped taking it again due to gynecomastia but took another Eligard on 09/07/2016 and next 6 monthly dose was due in February 2017 but patient did not take it. PSA checked on 04/13/2017 was 30.80 PSA checked on 05/11/[address] scan of abdomen pelvis done on 12/03/2016 showed some questionable enlarged lymph nodes and bone scan was negative Hepatitis C , on vosevi CT scan of abdomen pelvis done on 08/05/2017 showed no abdominal or pelvic lymphadenopathy and no osteoblastic bone disease and no other abnormal mass seen. Bone scan done on 08/05/2017 showed no evidence of osseous metastatic disease PSA checked on 08/05/2017 57.67 compared to 55.70 on 07/06/2017 Plan: Discussed with patient regarding his concerns about progressive PSA and now with urinary retention requiring repeated self-catheterization, Since his last visit to cancer center in July 2017, patient was trying alternative/herbal therapy until recently when he developed acute urinary obstruction for which he went to [facility], where he was diagnosed with urine tract infection with Enterococcus and treated with ciprofloxacin and Castro's cath with the back for 2 weeks subsequently underwent cystoscopy which showed mild radiation cystitis type changes but nothing severe., At this point, we will consider CT scan of chest ,abdomen pelvis and bone scan to assess disease status and repeat CBC, CMP, PSA and testosterone level and As his follow-up PSA level shows evidence of disease progression, we will start him on treatment with Zoladex 10.8 mg IM every 3 months along with abiraterone 250 mg p.o. daily and prednisone 5 mg p.o. twice a day Patient presents today to reassess blood glucose levels. He is running around 200 in the morning hours but continues to be greater than 400 at bedtime. Patient instructed to increase Lantus to 12 units at bedtime and continue sliding scale insulin. We will hold off on starting abiraterone and prednisone until blood glucose levels are better controlled. Patient to return to clinic in 1 week with Accu-Chek results and will hopefully start his abiraterone at that time. . Signed By: Florina Osullivan N.P. <<Signature on File>>
== END 2021-05-30 08:38 | disposition home or self-care (01) ==
PROVIDERS: PCP Internal Medicine; Visit Provider Nurse Practitioner Family
DX: C61 Malignant neoplasm of prostate (principal); B19.20 Unspecified viral hepatitis C without hepatic coma; E11.9 Type 2 diabetes mellitus without complications; Z79.899 Other long term (current) drug therapy; Z95.1 Presence of aortocoronary bypass graft
CPT/HCPCS: 99215

== ENCOUNTER 2021-06-05 08:36 | Outpatient (CLI) | payer MEDICARE, SELFPAY ==
--- NOTE | 2021-06-05 09:14 | ONC FU_ITS ---
Florina Osullivan Progress Note Patient: Tad Archer Unit #: [id number]: [id number] Dicatated By: Florina Osullivan N.P.Date of Visit:Jun 05, 2021 Onc MED Follow-up/Prog Note Chief Complaint: Prostrate cancer History of Present Illness: Mr. 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 He recurred in 2014 with biopsy confirmation of recurrent disease 4+5 =9 in 6 out of 6 cores and negative metastatic workup status post Eligard ???1 given in May 2015 but patient 12 severe hot flashes and he decided not to take anymore. He deferred care until May 2016 when he was started on bicalutamide patient took it for 3 days then stopped taking it but restart taking on 08/16/2016 then he was started on Eligard on 09/07/2016 plan was to give him every six-months and in the meantime patient stopped taking bicalutamide because of gynecomastia Patient lives in [place] so he was having transportation problem in getting to [place] from here and decided to establish care here in [place].,And [facility] [place] till November 09, 2017 and then lost follow-up, as per patient he was trying alternate/herbs therapy and was obtaining certain medications from [facility] and other places, he does remember the names but has tried so many different agents to 'clean' his prostate cancer, as per patient initially it helped him, he was feeling well but around 2020 he started having problem with urination and it was progressive to the point, in February 2021 he could not 'pee' anymore and decided to go to [facility] where he was evaluated and diagnosed with cystitis and treated with ciprofloxacin as urine culture grew Enterococcus, and he was also prescribed tamsulosin and Castro's cath with bag was placed in for 2 weeks and patient was referred to Dr. Gill, urologist for further evaluation and as per urology note his PSA checked in November 2020 was 116, On April 14, 2020 he underwent cystoscopy which showed prostatic architecture is not significantly changed. 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 And he was advised to continue self-catheterization along with a daily tamsulosin and was [facility] evaluation regarding progressive PSA. Patient presents today for follow-up. He was supposed to start abiraterone 250 mg daily and prednisone 5 mg p.o. twice daily but due to his glucose being greater than 400 it was decided to hold starting that until we can get his blood glucose levels under control. He is currently on a sliding scale insulin and also receiving Lantus 12 units subcutaneously at bedtime. He states he is feeling well and his blood glucose levels are improving. . Review Of Symptoms: See above. Past Medical History: There is no documented medical history. Past Surgical History: Covid [place] - [place] in 2021 Coronary artery bypass in 2007 Foot surgery in 1993 Allergies: contrast dye Medications: Tamsulosin HCl (0.4 mg) Capsule Oral daily Family History: Mr. Archer's mother at age 80: diabetes. Mr. Archer's father at age 78: heart disease. Social History: Mr. Archer is single and he is retired. Mr. Archer quit smoking 28 years ago but had smoked 0.5 packs/day for 15 years. He is a former drinker. Physical Examination: Performed on Jun 05, 2021 08:55: Height - 69.00 in, Weight - 171.6 lbs (HIGH), BSA - 1.94 sq.m, BMI - 25.34, Temperature - 97.5 F (LOW), Pulse - 72 /min, Respiration - 18 /min, BP - 152/81 mm(hg) (HIGH), O2 Sat - 99 %, Pain - 2, and Fatigue - 3. Performance Status: 0 - Fully active, able to carry on all predisease activities without restrictions. (ECOG) Constitutional Alert, cooperative, oriented. Mood and affect appropriate. Appears close to chronological age. Well nourished. Well developed. Head Normocephalic; no scars. Respiratory Lungs are clear to auscultation without rhonchi or wheezing. Cardiovascular Regular rate and rhythm of heart without murmurs, gallops or rubs. Abdomen Non-tender, non-distended, no masses, ascites or hepatosplenomegaly. Good bowel sounds. No guarding or rebound tenderness. Musculoskeletal No tenderness or swelling, normal range of motion without obvious weakness. Psychiatric Alert and oriented times three. Coherent speech. Verbalizes understanding of our discussions today. Laboratory: Test performed on May 26, 2021 12:20 Sodium 136 mmol/L Potassium 4.8 mmol/L Chloride 100 mmol/L Est Avg Glucose (eAG) 332 mg/dL CO2 28 mmol/L Anion Gap 12.8 BUN 6 mg/dL Creatinine 0.8 mg/dL Cr Clearance (Est) 83.2300 mL/min Glucose 319 mg/dL Osmolality - Calculated 292 mOsm/kg Calcium 10.2 mg/dL Protein, Total 7.4 g/dL Albumin 4.6 g/dL Globulin 2.8 g/dL Bilirubin, Total 0.8 mg/dL ALT (SGPT) 18 U/L AST (SGOT) 20 U/L Alkaline Phosphatase 143 IU/L Hemoglobin A1C % 13.2 % WBC 8.0 10 3/uL RBC 5.26 10 6/uL HGB 15.2 g/dL HCT 46.9 % MCV 89.2 fl MCH 28.9 pg MCHC 32.4 g/dL RDW 12.7 % Platelet Count 226 10 3/cmm MPV 11.2 fL Neutrophils 4.14 10 3/uL Lymphocytes 3.1 10 3/uL Monocytes 0.5 10 3/uL Eosinophils 0.3 10 3/uL Basophils 0.1 10 3/uL Neutrophil % 51.8 % Lymphocyte % 38.4 % Monocyte % 5.6 % Eosinophil % 3.1 % Basophils % 0.6 % NRBC % 0 % PSA 135.800 ng/mL Impression: Biochemical recurrence with progressive PSA PSA checked in November 2020 was 116 and repeat in March 2021 was 137, Compared to 57.60 on August 09, 2017 after that patient lost follow-up till April 2021, As patient was trying alternative/herbal therapy Prostrate cancer diagnosed in 2004 status post EB RT with 3-D conformal plan in 2014, 7560cGy completed in October 2004 Recurrence with PSA 29 in in November 2014 prostrate biopsy confirmed local recurrence with high risk prostate cancer but metastatic workup was negative Given involvement of seminal vesicle, it was decided he was a poor candidate for brachytherapy. Started on Eligard in May 2015 he took one injection and second injection was due in 6 month in November 2015 but patient refused due to hot flashes. And he was also refusing bicalutamide [place] 08/16/2016 when he started taking it but then later on stopped taking it again due to gynecomastia but took another Eligard on 09/07/2016 and next 6 monthly dose was due in February 2017 but patient did not take it. PSA checked on 04/13/2017 was 30.80 PSA checked on 05/11/[address] scan of abdomen pelvis done on 12/03/2016 showed some questionable enlarged lymph nodes and bone scan was negative Hepatitis C , on vosevi CT scan of abdomen pelvis done on 08/05/2017 showed no abdominal or pelvic lymphadenopathy and no osteoblastic bone disease and no other abnormal mass seen. Bone scan done on 08/05/2017 showed no evidence of osseous metastatic disease PSA checked on 08/05/2017 57.67 compared to 55.70 on 07/06/2017 Plan: Discussed with patient regarding his concerns about progressive PSA and now with urinary retention requiring repeated self-catheterization, Since his last visit to cancer center in July 2017, patient was trying alternative/herbal therapy until recently when he developed acute urinary obstruction for which he went to [facility], where he was diagnosed with urine tract infection with Enterococcus and treated with ciprofloxacin and Castro's cath with the back for 2 weeks subsequently underwent cystoscopy which showed mild radiation cystitis type changes but nothing severe., At this point, we will consider CT scan of chest ,abdomen pelvis and bone scan to assess disease status and repeat CBC, CMP, PSA and testosterone level and As his follow-up PSA level shows evidence of disease progression, we will start him on treatment with Zoladex 10.8 mg IM every 3 months along with abiraterone 250 mg p.o. daily and prednisone 5 mg p.o. twice a day Patient presents today to reassess blood glucose levels. They have greatly improved he still has some elevation in blood glucose between 250 and 300 at times but many of them are running around 150. We will increase his Lantus to 14 units at bedtime and continue the sliding scale insulin. He will continue checking his blood glucose levels before meals and at bedtime. He will start his abiraterone 250 mg p.o. daily and his prednisone 5 mg p.o. twice a day. It was explained to him that the prednisone may increase his blood glucose levels. Patient has already had education on abiraterone but we discussed side effects in detail once again. He will return to the clinic in 2 weeks with CBC and CMP or sooner if needed. Signed By: Florina Osullivan NDavid. <<Signature on File>>
== END 2021-06-05 08:37 | disposition home or self-care (01) ==
PROVIDERS: PCP Internal Medicine; Visit Provider Nurse Practitioner Family
DX: C61 Malignant neoplasm of prostate (principal); B19.20 Unspecified viral hepatitis C without hepatic coma; E11.9 Type 2 diabetes mellitus without complications; Z79.899 Other long term (current) drug therapy; Z95.1 Presence of aortocoronary bypass graft
CPT/HCPCS: 99214

== ENCOUNTER 2021-06-19 08:46 | Outpatient (CLI) | payer MEDICARE, SELFPAY ==
[2021-06-19 09:14] LABS: Basophils # 0.1 10^3/uL (0.0-0.1); Basophils % 0.4 %; Eosinophils # 0.1 10^3/uL (0.0-0.8); Eosinophils % 0.8 %; Hematocrit 49.3 % (42.0-52.0); Hemoglobin 15.7 g/dL (11.7-16.6); Lymphocytes # 3.9 10^3/uL (0.8-4.8); Lymphocytes % 32.5 %; Mean Corpuscular HGB Conc 31.8 g/dL (30.0-36.0); Mean Corpuscular Hemoglobin 28.6 pg (28.0-34.0); Mean Corpuscular Volume 89.8 fl (80-94); Mean Platelet Volume 10.9 fL (7.4-10.4); Monocytes # 0.6 10^3/uL (0.2-0.9); Monocytes % 5.1 %; Neutrophils # 7.14 10^3/uL (1.8-7.7); Neutrophils % 60.4 %; Nucleated Red Blood Cells % 0 %; Platelet Count 256 10^3/cmm (130-400); Red Blood Count 5.49 10^6/uL (4.1-5.3); Red Cell Distribution Width 12.5 % (12.1-15.1); White Blood Count 11.9 10^3/uL (4.0-10.0)
[2021-06-19 09:41] LABS: Alanine Aminotransferase 22 U/L (0-41); Albumin Level 4.7 g/dL (3.5-5.2); Alkaline Phosphatase 118 IU/L (40-130); Anion Gap 13.5 (5-19); Aspartate Amino Transferase 16 U/L (0-40); Blood Urea Nitrogen 15 mg/dL (8-23); Calcium 9.5 mg/dL (8.5-10.5); Carbon Dioxide 29 mmol/L (22-29); Chloride 98 mmol/L (98-107); Globulin 2.9 g/dL (1.3-4.6); Glucose 201 mg/dL (65-115); Osmolality Calculated 289 mOsm/kg (285-295); Potassium 4.5 mmol/L (3.5-5.1); Sodium 136 mmol/L (136-145); Total Bilirubin 0.7 mg/dL (0.15-1.2); Total Protein 7.6 g/dL (6.6-8.7)
--- NOTE | 2021-06-22 18:28 | ONC FU_ITS ---
Dr. Fields follow up note Patient: Tad Archer Unit #: [id number]: 1945 Dicatated By: Brandi Fields M.D.Date of Visit:Jun 19, 2021 Onc Med Follow-up/Prog Note History of Present Illness: Mr. 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 He recurred in 2014 with biopsy confirmation of recurrent disease 4+5 =9 in 6 out of 6 cores and negative metastatic workup status post Eligard ???1 given in May 2015 but patient 12 severe hot flashes and he decided not to take anymore. He deferred care until May 2016 when he was started on bicalutamide patient took it for 3 days then stopped taking it but restart taking on 08/16/2016 then he was started on Eligard on 09/07/2016 plan was to give him every six-months and in the meantime patient stopped taking bicalutamide because of gynecomastia Patient lives in [place] so he was having transportation problem in getting to [place] from here and decided to establish care here in [place].,And continue [facility] [place] till November 09, 2017 and then lost follow-up, as per patient he was trying alternate/herbs therapy and was obtaining certain medications from [facility] and other places, he does remember the names but has tried so many different agents to 'clean' his prostate cancer, as per patient initially it helped him, he was feeling well but around 2020 he started having problem with urination and it was progressive to the point, in February 2021 he could not 'pee' anymore and decided to go to [facility] where he was evaluated and diagnosed with cystitis and treated with ciprofloxacin as urine culture grew Enterococcus, and he was also prescribed tamsulosin and Castro's cath with bag was placed in for 2 weeks and patient was referred to Dr. Gill, urologist for further evaluation and as per urology note his PSA checked in November 2020 was 116, On April 14, 2020 he underwent cystoscopy which showed prostatic architecture is not significantly changed. 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 And he was advised to continue self-catheterization along with a daily tamsulosin and was [facility] for evaluation regarding progressive PSA. Follow-up CT scan of chest abdomen pelvis done on May 16, 2021 showed no acute cardiopulmonary process, multiple thyroid nodules, no evidence of metastatic disease in the chest and CT scan of abdomen pelvis shows interval development of mild fatty infiltration of liver. Diffuse, mild wall thickening of the bladder, stable mild enlarged prostate gland. No evidence of metastatic disease in the abdomen or pelvis Bone scan was also ordered but patient declined because of copayment On May 26, 2021, he was started on Zoladex 10.8 mg every 3 months along with abiraterone/prednisone Came for follow-up, denies any specific complaints, no fever chills, no nausea or vomiting, no diarrhea or constipation, no melena or hematochezia, no hemoptysis hematemesis, no hematuria or dysuria, patient use Castro's in and out on as-needed basis, no new bony pains, occasionally hot flashes otherwise tolerating 3 monthly Zoladex along with daily abiraterone/prednisone well . Medications: Abiraterone Acetate 1 Tablet (of 250 mg) Oral b.i.d. for 30 days, Insulin Glargine 10 Unit(s) (of 100 Units/mL) Subcutaneous at bedtime, Insulin NPH (Human) (Isophane) Subcutaneous Take as Directed, predniSONE 1 Tablet (of 5 mg) Oral b.i.d., Tamsulosin HCl (0.4 mg) Capsule Oral daily Allergies: contrast dye Review of Systems: Review of Systems is not available for this patient. Vital Signs: Performed on Jun 19, 2021 10:02 Height - 69.00 in Weight - 169.6 lbs (LOW) BSA - 1.93 sq.m BMI - 25.05 Temperature - 96.4 F (LOW) Pulse - 78 /min Respiration - 16 /min BP - 115/76 mm(hg) O2 Sat - 97 % Pain - 2 Fatigue - 2 Performance Status: 0 - Fully active, able to carry on all predisease activities without restrictions. (ECOG) Physical Examination: ENMT - No mouth sores, no thrush, no jaundice, Respiratory - Lungs are clear to auscultation, Cardiovascular - Regular rate and rhythm of heart, Abdomen - Soft, bowel sounds present, Extremities - No visible edema. Lab/Imaging: Test performed on May 26, 2021 12:20 Sodium 136 mmol/L Potassium 4.8 mmol/L Chloride 100 mmol/L Est Avg Glucose (eAG) 332 mg/dL CO2 28 mmol/L Anion Gap 12.8 BUN 6 mg/dL Creatinine 0.8 mg/dL Cr Clearance (Est) 83.2300 mL/min Glucose 319 mg/dL Osmolality - Calculated 292 mOsm/kg Calcium 10.2 mg/dL Protein, Total 7.4 g/dL Albumin 4.6 g/dL Globulin 2.8 g/dL Bilirubin, Total 0.8 mg/dL ALT (SGPT) 18 U/L AST (SGOT) 20 U/L Alkaline Phosphatase 143 IU/L Hemoglobin A1C % 13.2 % WBC 8.0 10 3/uL RBC 5.26 10 6/uL HGB 15.2 g/dL HCT 46.9 % MCV 89.2 fl MCH 28.9 pg MCHC 32.4 g/dL RDW 12.7 % Platelet Count 226 10 3/cmm MPV 11.2 fL Neutrophils 4.14 10 3/uL Lymphocytes 3.1 10 3/uL Monocytes 0.5 10 3/uL Eosinophils 0.3 10 3/uL Basophils 0.1 10 3/uL Neutrophil % 51.8 % Lymphocyte % 38.4 % Monocyte % 5.6 % Eosinophil % 3.1 % Basophils % 0.6 % NRBC % 0 % PSA 135.800 ng/mL Impression: Biochemical recurrence with progressive PSA PSA checked in November 2020 was 116 and repeat in March 2021 was 137, Compared to 57.60 on August 09, 2017 after that patient lost follow-up till April 2021, As patient was trying alternative/herbal therapy Prostrate cancer diagnosed in 2004 status post EB RT with 3-D conformal plan in 2014, 7560cGy completed in October 2004 Recurrence with PSA 29 in in November 2014 prostrate biopsy confirmed local recurrence with high risk prostate cancer but metastatic workup was negative Given involvement of seminal vesicle, it was decided he was a poor candidate for brachytherapy. Started on Eligard in May 2015 he took one injection and second injection was due in 6 month in November 2015 but patient refused due to hot flashes. And he was also refusing bicalutamide [place] 08/16/2016 when he started taking it but then later on stopped taking it again due to gynecomastia but took another Eligard on 09/07/2016 and next 6 monthly dose was due in February 2017 but patient did not take it. PSA checked on 04/13/2017 was 30.80 PSA checked on 05/11/[address] scan of abdomen pelvis done on 12/03/2016 showed some questionable enlarged lymph nodes and bone scan was negative Hepatitis C , on vosevi CT scan of abdomen pelvis done on 08/05/2017 showed no abdominal or pelvic lymphadenopathy and no osteoblastic bone disease and no other abnormal mass seen. Bone scan done on 08/05/2017 showed no evidence of osseous metastatic disease PSA checked on 08/05/2017 57.67 compared to 55.70 on 07/06/2017 PSA checked in November 2020 was 116 and repeat in March 2021 was 137, Compared to 57.60 on August 09, 2017 after that patient lost follow-up till April 2021, As patient was trying alternative/herbal therapy Follow-up CT scan of chest abdomen pelvis done on May 16, 2021 showed no acute cardiopulmonary process, multiple thyroid nodules, no evidence of metastatic disease in the chest and CT scan of abdomen pelvis shows interval development of mild fatty infiltration of liver. Diffuse, mild wall thickening of the bladder, stable mild enlarged prostate gland. No evidence of metastatic disease in the abdomen or pelvis Bone scan was also ordered but patient declined because of copayment On May 26, 2021, he was started on Zoladex 10.8 mg every 3 months along with abiraterone/prednisone Plan: Discussed with patient regarding his labs white blood count 11.9 hemoglobin 15.7 hematocrit 49.3 platelets 256,000 CMP within normal limit except glucose 201, PSA 34.20, compared to 135.8 on May 26, 2021 Clinically, patient doing well with no new signs symptoms such of disease progression, tolerating 3 monthly Zoladex along with daily abiraterone/prednisone well, his follow-up CT scan of chest abdomen pelvis shows no evidence of metastatic disease, bone scan was also requested but patient said due to copayment he declined his bone scan and not requesting [facility]. He will discuss with patient navigator regarding [facility]. In the meantime we will continue with daily abiraterone/prednisone and 3 monthly Zoladex,As his follow-up PSA showed significant improvement, now down to 34.20 compared to 135.8 prior to starting on Zoladex/abiraterone/prednisone patient will return to clinic in 2 months with CBC CMP and PSA, hopefully with follow-up bone scan,And for 3 monthly dose of Zoladex Signed By: Brandi Fields M.D. <<Signature on File>>
== END 2021-06-19 08:47 | disposition home or self-care (01) ==
PROVIDERS: PCP Internal Medicine; Visit Provider Internal Medicine Hematology & Oncology
DX: C61 Malignant neoplasm of prostate (principal); R59.0 Localized enlarged lymph nodes; B18.2 Chronic viral hepatitis C; K76.0 Fatty (change of) liver, not elsewhere classified; N30.90 Cystitis, unspecified without hematuria; Z79.818 Long term (current) use of other agents affecting estrogen receptors and estrogen levels; Z79.52 Long term (current) use of systemic steroids; Z79.899 Other long term (current) drug therapy
CPT/HCPCS: 36415; 80053; 84153; 85025; 99215

== ENCOUNTER 2021-08-04 06:00 | Oncology outpatient (recurring) (ONCR) | payer OTHER, SELFPAY ==
[2021-08-04 12:34] LABS: Basophils # 0.1 10^3/uL (0.0-0.1); Basophils % 0.6 %; Eosinophils # 0.2 10^3/uL (0.0-0.8); Eosinophils % 1.2 %; Hematocrit 42.3 % (42.0-52.0); Lymphocytes % 38.4 %; Mean Corpuscular HGB Conc 33.1 g/dL (30.0-36.0); Mean Corpuscular Hemoglobin 28.7 pg (28.0-34.0); Mean Corpuscular Volume 86.9 fl (80-94); Mean Platelet Volume 11.1 fL (7.4-10.4); Monocytes # 0.8 10^3/uL (0.2-0.9); Monocytes % 6.4 %; Neutrophils # 6.62 10^3/uL (1.8-7.7); Neutrophils % 51.2 %; Nucleated Red Blood Cells % 0 %; Platelet Count 301 10^3/cmm (130-400); Red Blood Count 4.87 10^6/uL (4.1-5.3)
[2021-08-04 12:41] LABS: Estmated Average Glucose 324; Hemoglobin A1C 12.9 % (4.0-6.0)
[2021-08-04 13:00] LABS: Alanine Aminotransferase 38 U/L (0-41); Albumin Level 4.4 g/dL (3.5-5.2); Alkaline Phosphatase 79 IU/L (40-130); Aspartate Amino Transferase 24 U/L (0-40); Blood Urea Nitrogen 29 mg/dL (8-23); Calcium 10.3 mg/dL (8.5-10.5); Carbon Dioxide 29 mmol/L (22-29); Chloride 99 mmol/L (98-107); Globulin 3.2 g/dL (1.3-4.6); Glucose 74 mg/dL (65-115); Osmolality Calculated 290 mOsm/kg (285-295); Sodium 138 mmol/L (136-145); Total Bilirubin 0.4 mg/dL (0.15-1.2); Total Protein 7.6 g/dL (6.6-8.7)
[2021-08-04 13:02] LABS: Anion Gap 14.9 (5-19); Potassium 4.9 mmol/L (3.5-5.1)
== END 2021-08-21 23:59 | disposition home or self-care (01) ==
LOC: ONCMED 08-20 06:28
PROVIDERS: PCP Internal Medicine; Visit Provider Nurse Practitioner Family
DX: C61 Malignant neoplasm of prostate (principal); R73.9 Hyperglycemia, unspecified
CPT/HCPCS: 36415; 80053; 83036; 84153; 85025

== ENCOUNTER 2021-08-26 11:46 | Emergency (ER) | payer MEDICARE, SELFPAY ==
[2021-08-26 12:24] VITALS: BP 105/65; PULSE 68; RESP 18; TEMP 35.9; O2SAT 96; BMI 25.2
--- NOTE | 2021-08-26 13:06 | W.ED.GENADLT ---
HPI - General Adult General: Chief complaint: General Medical Stated complaint: abnormal labs Time Seen by Provider: 08/26/21 13:06 Source: patient Mode of arrival: ambulatory History of Present Illness: 75-year-old male who presents to the emergency room complaining of elevated blood pressure. Patient has a history of prostate cancer as well as diabetes mellitus and hepatitis C. Evidently few years ago he was told by a physician that he would within a few months that he stopped all of his medications. This was approximately 3 and half years ago he started feeling worse and worse he eventually tells me he went to the ER he was found to have urinary retention he had a indwelling catheter about 2 weeks he reengaged in treatment for his prostate cancer and has been seeing Dr. Bridget Fields. He states he is feeling much better now. He has not been taking anything for his blood sugar lately but is monitoring it. In addition that he is on prednisone. Generally feels well at this time but he had a blood sugar of over 500 on routine screening today. Relieving factors: none Exacerbating factors: none Associated symptoms: Deny chest pain, confusion, cough, diaphoresis, decreased appetite, dyspnea, fevers/chills, headache(s), malaise, nausea, rash, palpitations, seizures, short of breath, syncope, vomiting or weakness Review of Systems Const: Denies: fever(s), chills, fatigue, malaise or diaphoresis ENMT: Denies: throat pain, ear or mastoid pain, nasal discharge or nasal congestion Card: Denies: chest pain, palpitations or syncope Resp: Denies: dyspnea, productive cough or non-productive cough GI: Denies: abdominal pain, nausea or vomiting : Denies: flank pain, difficulty urinating, dysuria, urinary frequency or urinary urgency Skin/Breast: Denies: rash Neuro: Denies: headache(s) or confusion PFS ED PFSH: Medical History Acute urinary retention Diabetes GERD (gastroesophageal reflux disease) Hepatitis C Hyperlipidemia Hypertension Prostate cancer Surgical History History of tonsillectomy Hx of CABG Family History Mother , at age 80 Diabetes Sister Diabetes Father , at age 78 Heart disease Social History Smoking and tobacco status: former smoker Alcohol intake: never Adopted: No Marital status: Single service: Yes Current occupational status: retired History of recent travel: No Physical Exam Const: GENERAL APPEARANCE: cooperative and comfortable ORIENTATION/CONSCIOUSNESS: Yes awake, Yes oriented to person, Yes oriented to place and Yes oriented to time HENMT: COMMON NORMALS: normocephalic, atraumatic and hearing grossly normal bilaterally HEAD & SCALP: normocephalic and atraumatic Neck/C-Spine: COMMON NORMALS: no JVD Resp: COMMON NORMALS: normal respiratory effort, No retractions, No use of accessory muscles and clear to auscultation bilaterally AUSCULTATION: clear to auscultation bilaterally Cardio: COMMON NORMALS: no JVD, regular rate, regular rhythm and No murmurs present (Cardio) RATE: regular rate RHYTHM: regular rhythm GI: COMMON NORMALS: Soft to palpation and No hepatosplenomegaly present AUSCULTATION: Yes normoactive bowel sounds PALPATION: Yes Soft to palpation, No Tenderness to palpation present (GI), No Guarding due to palpation present (GI) and Yes No hepatosplenomegaly present Extremity: COMMON NORMALS: normal to inspection, capillary refill normal, no clubbing, cyanosis or edema, no calf tenderness and no pedal edema Neuro: SENSORIUM/ORIENTATION: Yes oriented to person, Yes oriented to place and Yes oriented to time Skin: COMMON NORMALS: no rashes or lesions noted GENERAL SKIN EXAM: no rashes or lesions noted Course Vital Signs: Vital signs: Vital Signs Temperature 96.6 F L 08/26/21 12:24 Pulse Rate 68 08/26/21 12:24 Respiratory Rate 18 08/26/21 12:24 Blood Pressure 105/65 08/26/21 12:24 Pulse Oximetry 96 08/26/21 12:24 MDM - General Adult Medical Decision Making Minimal anion gap blood sugars improved patient is feeling quite a bit better. At the time he was seen patient states he is not taking anything for his blood sugar he had previously been on metformin but stopped it. Wrote a prescription for [facility]up with his primary care doctor to recheck blood sugars within the next few days. (Note that the chart was signed 2 days later patient returned on that day and then told his that he was taking insulin. Medicines were updated during the time he was seen and now reflect that the patient is on insulin and his medicine list. That was not known when he was here for the 08/26/2021 visit. Medical Records I reviewed the patient's medical records. Lab Data I reviewed the patient's lab results. Laboratory Results Specimen Type Arterial 08/26/21 13:30 Sample Site Radial, left 08/26/21 13:30 ABG pH 7.42 (7.35-7.45) 08/26/21 13:30 ABG pCO2 37.9 mmHg (35-45) 08/26/21 13:30 ABG pO2 71.1 mmHg (80.0-100.0) L 08/26/21 13:30 ABG HCO3 24.6 mmol/L (22-26) 08/26/21 13:30 ABG O2 Saturation 94.5 08/26/21 13:30 ABG Base Excess 0.3 mmol/L (-2.0-2.0) 08/26/21 13:30 Jasen Test Pos 08/26/21 13:30 A-a O2 Gradient 4.1 mmHg (5-10) L 08/26/21 13:30 Hematocrit 38.5 % (42-52) L 08/26/21 13:30 Hgb O2 Saturation 92.8 % (95-100) L 08/26/21 13:30 Carboxyhemoglobin 0.7 %THgb (0.4-20.1) 08/26/21 13:30 Methemoglobin 1.2 % (0.4-1.5) 08/26/21 13:30 Total Hemoglobin 12.6 g/dL (14-18) L 08/26/21 13:30 Sodium 135.0 mmol/L (131-143) 08/26/21 13:30 Potassium 5.0 mmol/L (3.5-5.0) 08/26/21 13:30 Glucose 480.0 mg/dL (70-115) H 08/26/21 13:30 Ionized Calcium 1.3 mmol/L (1.1-1.4) 08/26/21 13:30 O2 Delivery Device Room air 08/26/21 13:30 Account Strategist ID Hinja 08/26/21 13:30 POC Glucose 243 mg/dL (70-110) H 08/26/21 14:44 Serum Ketones Negative (Negative) 08/26/21 13:20 Discharge Plan Discharge Patient Disposition: Home Clinical Impression: Hyperglycemia, Prostate CA, Diabetes mellitus Condition: Stable Prescriptions: No Action aspirin 81 mg tablet,delayed release (DR/EC) 81 mg PO QPM 0RF (DME) Blood Glucose Test Strip See Rx Instructions .Route Qty: 100 0RF Rx Instructions: use to check blood glucose 4 times daily (DME) lancets 30 gauge misc See Rx Instructions .Route Qty: 100 0RF Rx Instructions: to use to check blood glucose 4 times daily (DME) pen needle, diabetic [Comfort EZ Pen [place]] 31 gauge x 3/16 needle See Rx Instructions .Route Qty: 100 0RF Rx Instructions: to use with insulin pen atorvastatin [Lipitor] 80 mg Tablet 40 mg PO QPM 0RF prednisone 5 mg Tablet 5 mg PO BID 0RF amlodipine 5 mg Tablet 5 mg PO QAM 0RF lisinopril 40 mg Tablet 20 mg PO DAILY 0RF Novolin R Flexpen 100 unit/mL (3 mL) Insulin Pen See Rx Instructions .ROUTE .COMPLEX 0RF Rx Instructions: SLIDING SCALE IN THE AM AND 30 UNITS AFTER SUPPER insulin glargine [Lantus Solostar U-100 Insulin] 100 unit/mL (3 mL) Insulin Pen 40 unit SUBCUT QAM 0RF cholecalciferol (vitamin D3) [Vitamin D3] 50 mcg (2,000 unit) Capsule 100 mcg PO QAM 0RF tamsulosin 0.4 mg capsule 0.4 mg PO QPM 0RF Zytiga 250 mg tablet 250 mg PO QAM 0RF Rx Instructions: must be taken on empty stomach, at least 1 hr before or 2 hrs after a meal/food Discharge Orders: Discharge ED (Routine); Ordered 08/26/21 Ordered By: Estevan Lima Referrals: Brennen Perez [Primary Care Provider] - Discharge Diet: Diabetic Discharge Activity: Resume usual activity Activity Restrictions/Additional Instructions: Follow-up with your primary care doctor for further evaluation of blood sugar control. Coding Level of Care Code ED Director Executive Communications for [place] Fwd Exam Comprehensive
[2021-08-26 13:33] LABS: ABG PCO2 37.9 mmHg (35-45); ABG PH Result 7.42 (7.35-7.45); Alveolar-Arterial Oxygen Gradi 4.1 mmHg (5-10); Arterial Blood Gas Hematocrit 38.5 % (42-52); Base Excess ABG 0.3 mmol/L (-2.0-2.0); Blood Gas Allen Test Pos; Blood Gas Sample Type Arterial; Carboxyhemoglobin 0.7 %THgb (0.4-20.1); HCO3 ABG 24.6 mmol/L (22-26); HGB O2 Sat 92.8 % (95-100); Ionized Calcium Level - ABG 1.3 mmol/L (1.1-1.4); Methemoglobin 1.2 % (0.4-1.5); Oxygen Saturation ABG 94.5; PO2 ABG 71.1 mmHg (80.0-100.0); Total Hemoglobin 12.6 g/dL (14-18)
[2021-08-26] MEDS: sodium chloride 0.9% 1,000 ML 999 ML IV (13:34)
[2021-08-26] MEDS: insulin regular-human 100 units/1 mL 10 UNIT IVP (13:34)
[2021-08-26 13:35] LABS: Blood Gas Sample Site Radial, left; Oxygen Device ROOM AIR
[2021-08-26 13:44] LABS: Ketone (Acetest) Serum Negative (Negative)
[2021-08-26 14:01] LABS: Glucose Point of Care 409 mg/dL (70-110)
[2021-08-26 14:47] LABS: Glucose Point of Care 243 mg/dL (70-110)
== END 2021-08-26 15:13 | disposition home or self-care (01) ==
PROVIDERS: Emergency Provider Family Medicine; PCP Internal Medicine
DX: E11.65 Type 2 diabetes mellitus with hyperglycemia (principal); C61 Malignant neoplasm of prostate; Z79.82 Long term (current) use of aspirin; Z79.4 Long term (current) use of insulin; Z86.19 Personal history of other infectious and parasitic diseases; E78.5 Hyperlipidemia, unspecified; I10 Essential (primary) hypertension; Z95.1 Presence of aortocoronary bypass graft; Z87.891 Personal history of nicotine dependence
CPT/HCPCS: 36416; 36600; 80051; 82009; 82330; 82805; 82962; 96374; 99284; J1815; J7030

== ENCOUNTER 2021-08-28 08:21 | Observation (INO) | payer OTHER, MEDICARE, SELFPAY ==
[2021-08-28] VITALS (114 sets, daily range): BP systolic 72–152; BP diastolic 50–106; PULSE 66–110; RESP 9–41; TEMP 36.5–36.8; O2SAT 84–100; BMI 25.2
--- NOTE | 2021-08-28 08:41 | W.ED.GENADLT ---
HPI - General Adult General: Chief complaint: Weakness Stated complaint: low blood sugar Time Seen by Provider: 08/28/21 08:24 Source: patient Mode of arrival: ambulatory Limitations: no limitations History of Present Illness: 75-year-old male presents emergency room generally not feeling well. We seen him 2 days ago and he had told me that he was diabetic but was not currently taking anything and he was also on prednisone on his medicine list. He was prescribed Trulicity at the time of discharge. She did not pick it up however it turns out he is on Lantus and NovoLog he did not disclose that when we seen him previously and it was not on his active medication list and actually told me he was not using anything for diabetes at the time that he had previously been on metformin. Because of his kidney function we had decided not to use metformin. Evidently when he went to the [facility] they told him not to use the Trulicity because he is already on Lantus. Today he comes in he states has not been feeling well he said it polyuria and polydipsia he is concerned that his blood sugar is too low. They did increase him from 40 of Lantus twice a day to 50 of Lantus twice a day that was just yesterday. He did take his insulin this morning but is states he is not Mittie regularly. Onset (ago): hour(s) Relieving factors: none Exacerbating factors: none Associated symptoms: Deny chest pain, confusion, cough, diaphoresis, decreased appetite, dyspnea, fevers/chills, headache(s), malaise, nausea, rash, palpitations, seizures, short of breath, syncope, vomiting or weakness Treatments prior to arrival: none Review of Systems Const: Denies: malaise or diaphoresis Card: Denies: chest pain, palpitations or syncope Resp: Denies: dyspnea GI: Denies: nausea or vomiting : Reports: urinary frequency; Denies: flank pain, difficulty urinating, dysuria or urinary urgency Skin/Breast: Denies: rash Neuro: Denies: headache(s) or confusion Endo: Reports: polyuria, polydipsia and tired all the time [facility] ED PFSH: Medical History (Updated 08/28/21 @ 11:32 by Estevan Lima DO) Acute urinary retention Diabetes GERD (gastroesophageal reflux disease) Hepatitis C Hyperlipidemia Hypertension Prostate cancer Surgical History (Updated 08/28/21 @ 11:21 by Toan Padgett MD) History of tonsillectomy Hx of CABG Family History Mother , at age 80 Diabetes Sister Diabetes Father , at age 78 Heart disease Social History Smoking and tobacco status: former smoker Alcohol intake: never Adopted: No Marital status: Single service: Yes Current occupational status: retired History of recent travel: No Physical Exam Const: GENERAL APPEARANCE: cooperative and comfortable ORIENTATION/CONSCIOUSNESS: Yes awake, Yes oriented to person, Yes oriented to place and Yes oriented to time HENMT: COMMON NORMALS: normocephalic, atraumatic, hearing grossly normal bilaterally, external ears normal, EAC's normal, TM's normal bilaterally, Normal nasal mucous membranes and turbinates present, moist oral mucous membranes and oropharynx normal HEAD & SCALP: normocephalic and atraumatic NOSE: Normal nasal mucous membranes and turbinates present EXTERNAL EAR: Yes external ears normal EXTERNAL AUDITORY CANAL: EAC's normal TYMPANIC MEMBRANE: TM's normal bilaterally Eye: COMMON NORMALS: Equal, round and reactive pupils present, EOMs intact bilaterally, conjunctivae normal and no scleral icterus CONJUNCTIVA: Yes conjunctivae normal PUPIL: Yes Equal, round and reactive pupils present Neck/C-Spine: COMMON NORMALS: full ROM, no lymphadenopathy, supple and no JVD Lymph: LYMPHATIC: no lymphadenopathy noted and no lymphedema noted Resp: COMMON NORMALS: normal respiratory effort, No retractions, No use of accessory muscles and clear to auscultation bilaterally AUSCULTATION: clear to auscultation bilaterally Cardio: COMMON NORMALS: no JVD, regular rate, regular rhythm and No murmurs present (Cardio) RATE: regular rate RHYTHM: regular rhythm GI: COMMON NORMALS: Soft to palpation and No hepatosplenomegaly present AUSCULTATION: Yes normoactive bowel sounds PALPATION: Yes Soft to palpation, No Tenderness to palpation present (GI), No Guarding due to palpation present (GI) and Yes No hepatosplenomegaly present Extremity: COMMON NORMALS: normal to inspection, capillary refill normal, no clubbing, cyanosis or edema, no calf tenderness and no pedal edema Neuro: SENSORIUM/ORIENTATION: Yes oriented to person, Yes oriented to place and Yes oriented to time Skin: COMMON NORMALS: no rashes or lesions noted GENERAL SKIN EXAM: no rashes or lesions noted Course Vital Signs: Vital signs: Vital Signs Temperature 98.1 F 08/28/21 11:15 Pulse Rate 87 08/28/21 11:20 Respiratory Rate 20 H 08/28/21 11:20 Blood Pressure 106/75 08/28/21 11:20 Pulse Oximetry 97 08/28/21 11:20 MDM - General Adult Medical Decision Making Patient in early DKA with significant anion gap and ketosis. ABG was not significantly abnormal. He also has an acute kidney injury. Discussed with Dr. Padgett will admit orders written has been started on insulin drip admit to the ICU for DKA Medical Records I reviewed the patient's medical records. Lab Data I reviewed the patient's lab results. : 08/28/21 08:53 08/28/21 08:53 Radiology Impressions Chest X-Ray 08/28/21 09:50 Impression: Atherosclerosis and hyperinflation. Laboratory Results WBC 12.6 10^3/uL (4.0-10.0) H 08/28/21 08:53 RBC 4.33 10^6/uL (4.1-5.3) 08/28/21 08:53 Hgb 12.7 g/dL (11.7-16.6) 08/28/21 08:53 Hct 37.9 % (42.0-52.0) L 08/28/21 08:53 MCV 87.5 fl (80-94) 08/28/21 08:53 MCH 29.3 pg (28.0-34.0) 08/28/21 08:53 MCHC 33.5 g/dL (30.0-36.0) 08/28/21 08:53 RDW 12.9 % (12.1-15.1) 08/28/21 08:53 Plt Count 229 10^3/cmm (130-400) 08/28/21 08:53 MPV 11.9 fL (7.4-10.4) H 08/28/21 08:53 Neut % (Auto) 64.5 % 08/28/21 08:53 Lymph % (Auto) 27.4 % 08/28/21 08:53 [place] % (Auto) 6.2 % 08/28/21 08:53 Eos % (Auto) 0.4 % 08/28/21 08:53 Baso % (Auto) 0.2 % 08/28/21 08:53 Neut # (Auto) 8.11 10^3/uL (1.8-7.7) H 08/28/21 08:53 Lymph # (Auto) 3.4 10^3/uL (0.8-4.8) 08/28/21 08:53 [place] # (Auto) 0.8 10^3/uL (0.2-0.9) 08/28/21 08:53 Eos # (Auto) 0.1 10^3/uL (0.0-0.8) 08/28/21 08:53 Baso # (Auto) 0.0 10^3/uL (0.0-0.1) 08/28/21 08:53 Nucleated RBC % (auto) 0 % 08/28/21 08:53 Nucleated RBCs # 0.0 /100WBC 08/28/21 08:53 Sodium 134 mmol/L (136-145) L 08/28/21 08:53 Potassium 4.7 mmol/L (3.5-5.1) 08/28/21 08:53 Chloride 94 mmol/L (98-107) L 08/28/21 08:53 Carbon Dioxide 19 mmol/L (22-29) L 08/28/21 08:53 Anion Gap 25.7 (5-19) H 08/28/21 08:53 BUN 43 mg/dL (8-23) H 08/28/21 08:53 Creatinine 2.2 mg/dL (0.7-1.2) H 08/28/21 08:53 GFR Calculation Not Reportable 08/28/21 08:53 Glucose 575 mg/dL (65-115) H* 08/28/21 08:53 POC Glucose 507 mg/dL (70-110) H* 08/28/21 09:34 Calculated Osmolality 315 mOsm/kg (285-295) H 08/28/21 08:53 Calcium 10.5 mg/dL (8.5-10.5) 08/28/21 08:53 Magnesium 2.2 mg/dL (1.7-2.3) 08/28/21 08:53 Creatine Kinase 145 U/L (39-308) 08/28/21 08:53 TSH 0.73 uIU/mL (0.27-4.20) 08/28/21 08:53 Serum Ketones Positive (Negative) H 08/28/21 08:53 Discharge Plan Discharge Patient Disposition: Admitted As Inpatient Admit Provider: Toan Padgett Clinical Impression: DKA (diabetic ketoacidosis) Condition: Stable Coding Level of Care Code ED Tunnel Inspector for [place] Fwd Exam Comprehensive
[2021-08-28 08:42] LABS: Glucose Point of Care 566 mg/dL (70-110)
[2021-08-28] MEDS: sodium chloride 0.9% 1,000 ML 999 ML IV (08:57)
[2021-08-28] MEDS: insulin regular-human 100 units/1 mL 20 UNIT IVP (08:57)
[2021-08-28 09:03] LABS: Basophils % 0.2 %; Eosinophils # 0.1 10^3/uL (0.0-0.8); Eosinophils % 0.4 %; Hematocrit 37.9 % (42.0-52.0); Hemoglobin 12.7 g/dL (11.7-16.6); Lymphocytes # 3.4 10^3/uL (0.8-4.8); Lymphocytes % 27.4 %; Mean Corpuscular HGB Conc 33.5 g/dL (30.0-36.0); Mean Corpuscular Hemoglobin 29.3 pg (28.0-34.0); Mean Corpuscular Volume 87.5 fl (80-94); Mean Platelet Volume 11.9 fL (7.4-10.4); Monocytes # 0.8 10^3/uL (0.2-0.9); Monocytes % 6.2 %; Neutrophils # 8.11 10^3/uL (1.8-7.7); Neutrophils % 64.5 %; Nucleated Red Blood Cells % 0 %; Platelet Count 229 10^3/cmm (130-400); Red Blood Count 4.33 10^6/uL (4.1-5.3); Red Cell Distribution Width 12.9 % (12.1-15.1); White Blood Count 12.6 10^3/uL (4.0-10.0)
[2021-08-28 09:19] LABS: Anion Gap 25.7 (5-19); Blood Urea Nitrogen 43 mg/dL (8-23); Calcium 10.5 mg/dL (8.5-10.5); Carbon Dioxide 19 mmol/L (22-29); Chloride 94 mmol/L (98-107); Osmolality Calculated 315 mOsm/kg (285-295); Potassium 4.7 mmol/L (3.5-5.1); Sodium 134 mmol/L (136-145)
[2021-08-28 09:21] LABS: Glucose 575 mg/dL (65-115); Ketone (Acetest) Serum Positive (Negative)
[2021-08-28 09:38] LABS: Glucose Point of Care 507 mg/dL (70-110)
--- NOTE | 2021-08-28 09:44 | PC.PHAR ---
PT STATES HE TAKES CARE OF HIS OWN MEDICATIONS-PT STATES HE USES HIS NOVOLIN R PEN SS IN THE AM AND 30 UNITS AFTER SUPPER [facility] 12 UNITS TID BEFORE MEALS-PT STATES HE USES HIS LANTUS SOLOSTAR 40 UNITS IN THE AM PTS [facility] 30 UNITS HS-PT STATES HE IS STILL TAKING FLOMAX 0.4MG QPM MEDICATION NOT ON PTS [facility] EXT MED HISTORY SHOWS LAST FILLED 06/23/21 30D/S-RX WAS WRITTEN FOR TRULICITY 0.75MG Q7D ON 08/26/21 PT [facility] AND STATES THE DR WOULD NOT FILL PT STATES THE [facility] DR TOLD HIM HE WAS ALREADY BEING TREATED WITH OTHER MEDICATIONS-TRULICITY ON THE 340B PLAN IS STILL OVER 800 DOLLARS PER [facility]-NOTES ARE MADE IN THE PHARMACY COMMENTS
[2021-08-28] MEDS: insulin regular-human 250 UNIT in sodium chloride 0.9% 250 ML 13 UNIT IV (09:45)
--- NOTE | 2021-08-28 09:50 | XR_ITS ---
WS: [id number] Portable AP upright chest, 08/28/2021 Clinical Data: dyspnea/cough Comparison: None. Findings: No nodules, masses or effusions are seen. The heart is normal. The pulmonary vascularity is not increased. No pneumonia or pneumothorax is seen. The aortic arch and descending thoracic aorta s how mild tortuosity and calcification. Midline sternotomy sutures are present. The diaphragms are fla ttened. XR/XR chest 1V portable [id number] Impression: Atherosclerosis and hyperinflation.
[2021-08-28 10:30] LABS: ABG PCO2 31.2 mmHg (35-45); ABG PH Result 7.41 (7.35-7.45); Alveolar-Arterial Oxygen Gradi 4.3 mmHg (5-10); Arterial Blood Gas Hematocrit 38.7 % (42-52); Blood Gas Allen Test Pos; Blood Gas Operator Identificat BD; Blood Gas Sample Site Brachial, right; Blood Gas Sample Type Arterial; Carboxyhemoglobin 0.7 %THgb (0.4-20.1); HCO3 ABG 19.7 mmol/L (22-26); HGB O2 Sat 93.6 % (95-100); Ionized Calcium Level - ABG 1.3 mmol/L (1.1-1.4); Methemoglobin 1.1 % (0.4-1.5); Oxygen Saturation ABG 95.4; PO2 ABG 76.8 mmHg (80.0-100.0); Potassium Level - ABG 3.7 mmol/L (3.5-5.0); Total Hemoglobin 12.6 g/dL (14-18)
[2021-08-28 10:34] LABS: Glucose Point of Care 375 mg/dL (70-110)
[2021-08-28 10:34] LABS: Glucose Point of Care 252 mg/dL (70-110)
--- NOTE | 2021-08-28 10:35 | PM.HP ---
Providers/Chief Complaint Admitting Physician: Toan Padgett MD Primary Care Provider: Brennen Perez Chief Complaint: low blood sugar History of Present Illness Tad Archer is a 75 year old male who presented to the ED this morning for elevated blood glucose. He reports that for the past few days up to a week he has not been feeling well, reports feeling tired, and that he does not have energy. He reports driving to his doctor's office this morning and feeling dizzy, at which point he had his neighbor drive him. He reports he is been having the symptoms intermittently for about 1 week along with profuse night sweating. He says he takes his Lantus and NovoLog on a daily basis and has a log at bedside. He did report however that he missed his dose yesterday because he was feeling too tired. He does not report any confusion or change in thought process. He does not report any kind of chest discomfort or chest pain. He reports being jittery and nauseous and reports intermittent reflux especially after drinking juice. He reports drinking large amounts of fruit juice lately. He reports that he has had urine retention for the past 5 months which is relative to his prostate cancer. He had been with a urologist who had ordered in and out catheterization which he had discontinued about 2 weeks ago because he stated he felt better and did not think he needed it. 1 Liter of NS was adminstered in the ED and IV insulin drip was initiated. Review of Systems General: Reports: 10 or more systems reviewed and unremarkable except in HPI and below Const: Reports: body aches, change in weight, fatigue, malaise, night sweats and other (dizziness); Denies: fever(s), chills, change in sleep pattern or daytime sleepiness Eyes: Denies: change in vision or blurry vision ENMT: Denies: throat pain, odynophagia, hoarseness or swelling of lips/tongue Card: Reports: lightheadedness; Denies: chest pain, palpitations or syncope Resp: Denies: dyspnea, productive cough, wheezing, stridor or pain on inspiration GI: Reports: nausea and heartburn; Denies: abdominal pain, vomiting, dysphagia, early satiety, diarrhea or constipation : Reports: difficulty urinating; Denies: flank pain or dysuria Musc: Reports: back pain; Denies: neck pain, extremity pain, extremity swelling or joint pain Skin/Breast: Denies: rash, pruritus, erythema, skin pain, skin tenderness, skin swelling or sores Neuro: Reports: weakness in extremities and dizziness; Denies: headache(s), numbness in extremities, sensory changes, lack of coordination, difficulty walking, frequent falls, vertigo, confusion, Slurred speech present, difficulty communicating thoughts or seizure-like activity Psych: Denies: anxiety, depression, mood swings, panic attacks, sleeping less, sleeping more or hopelessness Endo: Reports: tired all the time and excessive sweating; Denies: polyuria or polydipsia Inderjit/Lymph: Denies: easy bruising, easy bleeding, petechiae or purpura All/Imm: Denies: urticaria, throat swelling, facial swelling or acute wheezing Medications/Allergies Home Medications Medication Instructions Recorded Confirmed Last Taken Type blood sugar diagnostic (Blood #100 ea 06/24/21 08/28/21 Unknown Rx Glucose Test) lancets 30 gauge #100 ea 06/24/21 08/28/21 Unknown Rx pen needle, diabetic 31 gauge x #100 ea 06/24/21 08/28/21 Unknown Rx 3/16 (Comfort EZ Pen [place]) aspirin 81 mg tablet,delayed 81 mg PO QPM 08/26/21 08/28/21 08/27/21 History release abiraterone 250 mg tablet (Zytiga) 250 mg PO QAM 08/28/21 08/28/21 08/27/21 History amlodipine 5 mg tablet 5 mg PO QAM 08/28/21 08/28/21 08/27/21 History atorvastatin 80 mg tablet (Lipitor) 40 mg PO QPM 08/28/21 08/28/21 08/27/21 History cholecalciferol (vitamin D3) 50 100 mcg PO QAM 08/28/21 08/28/21 08/27/21 History mcg (2,000 unit) capsule (Vitamin D3) insulin glargine 100 unit/mL (3 40 unit SUBCUT QAM 08/28/21 08/28/21 08/27/21 History mL) subcutaneous pen (Lantus Solostar U-100 Insulin) insulin regular human 100 unit/mL See Rx Instructions .ROUTE .COMPLEX 08/28/21 08/28/21 08/27/21 History (3 mL) subcutaneous pen (Novolin R Flexpen) lisinopril 40 mg tablet 20 mg PO DAILY 08/28/21 08/28/21 08/27/21 History prednisone 5 mg tablet 5 mg PO BID 08/28/21 08/28/21 08/27/21 History tamsulosin 0.4 mg capsule 0.4 mg PO QPM 08/28/21 08/28/21 08/27/21 History Allergies Allergy/AdvReac Type Severity Reaction Status Date / Time fluorescein Allergy Unknown Verified 08/28/21 09:40 Iodinated Contrast Media Allergy ADR-Nausea Verified 08/28/21 09:40 metformin Allergy Unknown Verified 08/28/21 09:40 simvastatin [From Zocor] Allergy Unknown Verified 08/28/21 09:40 PFSH Acute PFSH: Medical History Acute urinary retention Diabetes GERD (gastroesophageal reflux disease) Hepatitis C Hyperlipidemia Hypertension Prostate cancer Surgical History History of tonsillectomy Hx of CABG Family History Mother , at age 80 Diabetes Sister Diabetes Father , at age 78 Heart disease Social History Smoking and tobacco status: former smoker Alcohol intake: never Adopted: No Marital status: Single service: Yes Current occupational status: retired History of recent travel: No Vitals/I&O/Wt Last Vital Signs Pulse 101 H 08/28/21 08:42 Resp 18 08/28/21 08:42 BP 143/99 08/28/21 08:42 Pulse Ox 100 08/28/21 08:42 Weight last 48 hrs Weight 77.564 kg Physical Exam Narrative: Mr. Archer is a 75-year-old gentleman resting comfortably in the bed with no apparent distress. IV insulin drip and IV fluids running in left forearm. HEENT: Head is normocephalic atraumatic, conjunctive are normal, no scleral icterus or injection noted, neck supple, no thyromegaly noted. Neuro: Patient alert and oriented x3. No obvious focal deficits CV: Regular rate and rhythm, no murmurs. Pulm/Resp: Chest rise symmetrical, no accessory muscle use noted, lungs clear to auscultation bilaterally. GI: Abdomen soft, nontender, bowel sounds normal to auscultation. No obvious organomegaly : Deferred. Extremities: No wounds or trauma or noted, no clubbing cyanosis or edema noted. Cap refill brisk Skin: Warm dry intact. Data : 08/28/21 08:53 08/28/21 08:53 Other Labs: ABG: pH 7.41, CO2 31.2, O2 76.8, HCO3 19.7. Anion gap 25.7. Urinalysis still pending. Serum ketones positive. CXR: Chest x-ray shows atherosclerosis and hyperinflation, no other significant findings. A&P Assessment and plan (1) DKA (diabetic ketoacidosis): Patient presented to the ED this morning with elevated blood sugars greater than 500. Patient complained of dizziness, nausea, and general malaise. Serum ketones were positive. UA still pending. Adjusted electrolytes and IV fluids as appropriate repeat BMP in approximately 4 hours. At that point we will decide when another BMP will be needed, likely 4 to 6 hours. As anion gap closes, will transition to long-acting insulin and sliding scale Consistent carb diet Discussed with him the need to reduce large ingestions of fruit juices. Likely his hyperglycemia and DKA is multifactorial, from ingestion of large amounts of glucose, prednisone which is being used for his prostate malignancy treatment in the face of his underlying diabetes Check magnesium level intermittentl Every hour Accu-Checks ordered. Switch fluids to D5 half-normal saline with 20 mill equivalents of potassium per liter when blood sugar less than 250 until anion gap closes Will continue to monitor with CBC/CMP. Status: Acute (2) Hyperglycemia: Patient presented the ED with this morning with elevated blood sugars. See plan for DKA. Carb controlled diet ordered Will continue patient home insulin when DKA has resolved. Status: Acute (3) Acute urinary retention: Patient has a history of prostate cancer and urine retention. Patient had seen a urologist in the last couple of months. Urologist had administered a Castro, and patient was discharged at home with orders to self cath with urination. Patient states he stopped self-catheterization approximately 2 weeks ago after he started feeling better. Bladder scan has been ordered, and does not show significant retention. Await urinalysis Bladder scan as needed, self cath as needed. Consider Castro if significant retention Status: Acute (4) GERD (gastroesophageal reflux disease): Patient complains of intermittent reflux, Ordered pantoprazole p.o. daily. Status: Acute (5) Acute kidney injury: May be related to DKA, dehydration. Does not appear to have significant urinary retention currently. Hydration as noted. If does not improve by tomorrow consider renal ultrasound Avoid any renal toxic medication Hold lisinopril Status: Acute Plan Multiple other medical conditions as outlined in the past medical history. Continue many of his home medications. Holding lisinopril secondary to acute kidney injury Subcutaneous heparin for DVT prophylaxis. Attestations Medical Necessity Statement*: Patient will need less than 2 midnight stay to address DKA, acute kidney injury Coding Level of Care Code Acute [employer] [facility] for [facility] Diagnoses DKA (diabetic ketoacidosis) E11.10 GERD (gastroesophageal reflux disease) K21.9 Hyperglycemia R73.9 Acute urinary retention R33.8 Acute kidney injury N17.9
[2021-08-28 11:12] LABS: Magnesium 2.2 mg/dL (1.7-2.3)
[2021-08-28 11:22] LABS: Creatine Phosphokinase 145 U/L (39-308); Thyroid Stimulating Hormone 0.73 uIU/mL (0.27-4.20)
[2021-08-28] MEDS: pneumococcal (23 valent) SDV 0.5 mL IM (11:47)
[2021-08-28] MEDS: heparin 5,000 unit/mL INJ 1 mL 5000 UNIT SUBCUT ×2 (11:47→23:25)
[2021-08-28] MEDS: D5-NS 0.45% + KCL 20 mEq 20 MEQ/1,000 ML BAG 125 MEQ IV ×2 (11:48→20:03)
[2021-08-28 12:08] LABS: Glucose Point of Care 208 mg/dL (70-110)
[2021-08-28 12:09] LABS: Glucose Point of Care 194 mg/dL (70-110)
[2021-08-28] MEDS: pantoprazole DR 40 mg Tablet PO (12:14)
[2021-08-28 13:05] LABS: Glucose Point of Care 171 mg/dL (70-110)
[2021-08-28 14:11] LABS: Glucose Point of Care 198 mg/dL (70-110)
[2021-08-28 15:02] LABS: Glucose Point of Care 185 mg/dL (70-110)
[2021-08-28 16:03] LABS: Glucose Point of Care 185 mg/dL (70-110)
[2021-08-28 16:23] LABS: Bilirubin Urine Neg (Negative); Blood Urine Neg (Negative); Glucose Urine UA 4+ (Normal); Ketones Urine Negative (Negative); Leukocyte Esterase Urine Negative (Negative); Nitrate Urine Negative (Negative); Protein Urine Neg (Negative); Specific Gravity, Urine 1.015 (1.005-1.030); Urine Appearance Clear (CLEAR); Urine Color Yellow (Yellow); Urobilinogen Urine Norm (Negative); pH Urine 5 (5-7)
[2021-08-28 17:01] LABS: Glucose Point of Care 140 mg/dL (70-110)
[2021-08-28] MEDS: tamsulosin 0.4 mg Capsule PO (17:03)
[2021-08-28] MEDS: predniSONE 5 mg Tablet PO (17:03)
[2021-08-28] MEDS: aspirin 81 mg EC Tablet PO (17:03)
[2021-08-28 17:31] LABS: Add Urine Culture? No; RBC Urine 0-4 /hpf (0-2); Squamous Epithelial Cell Urine 0-4 /hpf (0-5); WBC Urine 0-4 /hpf (0-5)
[2021-08-28 18:18] LABS: Glucose Point of Care 220 mg/dL (70-110)
[2021-08-28 18:43] LABS: Anion Gap 15.7 (5-19); Blood Urea Nitrogen 37 mg/dL (8-23); Calcium 9.9 mg/dL (8.5-10.5); Carbon Dioxide 23 mmol/L (22-29); Chloride 103 mmol/L (98-107); Glucose 192 mg/dL (65-115); Osmolality Calculated 300 mOsm/kg (285-295); Potassium 3.7 mmol/L (3.5-5.1); Sodium 138 mmol/L (136-145)
--- NOTE | 2021-08-28 19:11 | PC.NURSE ---
Labs reviewed with Dr. Padgett. Orders to continue insulin drip and repeat BMP and Mag in 4 hours. Insulin gtt currently infusing at 20.6 units per hour per protocol.
[2021-08-28 19:13] LABS: Glucose Point of Care 232 mg/dL (70-110)
[2021-08-28] MEDS: atorvastatin 40 mg Tablet PO (20:19)
[2021-08-28 20:31] LABS: Glucose Point of Care 128 mg/dL (70-110)
[2021-08-28 21:55] LABS: Glucose Point of Care 103 mg/dL (70-110)
[2021-08-28 23:13] LABS: Anion Gap 15.8 (5-19); Blood Urea Nitrogen 30 mg/dL (8-23); Calcium 9.8 mg/dL (8.5-10.5); Carbon Dioxide 23 mmol/L (22-29); Chloride 105 mmol/L (98-107); Glucose 95 mg/dL (65-115); Osmolality Calculated 296 mOsm/kg (285-295); Potassium 3.8 mmol/L (3.5-5.1); Sodium 140 mmol/L (136-145)
[2021-08-29] VITALS (16 sets, daily range): BP systolic 104–162; BP diastolic 59–117; PULSE 61–94; RESP 11–29; TEMP 36.6; O2SAT 81–100
[2021-08-29 00:30] LABS: Glucose Point of Care 148 mg/dL (70-110)
[2021-08-29 01:39] LABS: Glucose Point of Care 164 mg/dL (70-110)
[2021-08-29 02:43] LABS: Glucose Point of Care 144 mg/dL (70-110)
[2021-08-29 03:48] LABS: Glucose Point of Care 126 mg/dL (70-110)
[2021-08-29] MEDS: D5-NS 0.45% + KCL 20 mEq 20 MEQ/1,000 ML BAG 125 MEQ IV (04:02)
[2021-08-29 04:38] LABS: Glucose Point of Care 111 mg/dL (70-110)
[2021-08-29 04:54] LABS: Basophils % 0.3 %; Eosinophils # 0.1 10^3/uL (0.0-0.8); Hematocrit 35.4 % (42.0-52.0); Hemoglobin 11.5 g/dL (11.7-16.6); Lymphocytes # 3.3 10^3/uL (0.8-4.8); Lymphocytes % 29.1 %; Mean Corpuscular HGB Conc 32.5 g/dL (30.0-36.0); Mean Corpuscular Hemoglobin 29.5 pg (28.0-34.0); Mean Corpuscular Volume 90.8 fl (80-94); Mean Platelet Volume 11.4 fL (7.4-10.4); Monocytes # 0.9 10^3/uL (0.2-0.9); Monocytes % 7.5 %; Neutrophils # 6.93 10^3/uL (1.8-7.7); Neutrophils % 60.7 %; Nucleated Red Blood Cells % 0 %; Platelet Count 190 10^3/cmm (130-400); Red Cell Distribution Width 13.2 % (12.1-15.1); White Blood Count 11.4 10^3/uL (4.0-10.0)
[2021-08-29 05:10] LABS: Alanine Aminotransferase 20 U/L (0-41); Albumin Level 3.5 g/dL (3.5-5.2); Alkaline Phosphatase 60 IU/L (40-130); Aspartate Amino Transferase 16 U/L (0-40); Blood Urea Nitrogen 24 mg/dL (8-23); Calcium 9.7 mg/dL (8.5-10.5); Carbon Dioxide 21 mmol/L (22-29); Chloride 106 mmol/L (98-107); Globulin 2.8 g/dL (1.3-4.6); Glucose 108 mg/dL (65-115); Osmolality Calculated 291 mOsm/kg (285-295); Sodium 138 mmol/L (136-145); Total Bilirubin 0.4 mg/dL (0.15-1.2); Total Protein 6.3 g/dL (6.6-8.7)
[2021-08-29 05:12] LABS: Anion Gap 14.9 (5-19); Potassium 3.9 mmol/L (3.5-5.1)
[2021-08-29 05:42] LABS: Glucose Point of Care 101 mg/dL (70-110)
--- NOTE | 2021-08-29 05:50 | PC.NURSE ---
Morning labs reviewed with Dr. Balderas. Orders placed by physician as well as telephone order to continue Insulin gtt for two hours. Discontinue Insulin gtt and fluids at 0730.
[2021-08-29] MEDS: insulin glargine 100 units/1 mL 40 UNIT SUBCUT (05:56)
[2021-08-29] MEDS: amlodipine 5 mg Tablet PO (05:56)
[2021-08-29 06:57] LABS: Glucose Point of Care 112 mg/dL (70-110)
[2021-08-29 07:45] LABS: Glucose Point of Care 125 mg/dL (70-110)
[2021-08-29] MEDS: pantoprazole DR 40 mg Tablet PO (07:53)
[2021-08-29] MEDS: predniSONE 5 mg Tablet PO (07:54)
[2021-08-29] MEDS: insulin lispro 100 unit/1 mL 10 UNIT SUBCUT ×2 (08:05→11:34)
[2021-08-29] MEDS: heparin 5,000 unit/mL INJ 1 mL 5000 UNIT SUBCUT (11:34)
[2021-08-29] MEDS: insulin lispro 100 unit/1 mL SUBCUT (11:35)
[2021-08-29] MEDS: docusate sodium 100 mg Capsule PO (11:39)
[2021-08-29] MEDS: polyethylene glycol 3350 Pkt 17 gm PO (11:39)
[2021-08-29 11:44] LABS: Glucose Point of Care 260 mg/dL (70-110)
--- NOTE | 2021-08-29 12:37 | PM.DCS ---
Discharge Providers Date of Admission: 08/28/21 10:13 Date of Discharge: August 29, 2021 Attending Provider at Admission: Toan Padgett MD Attending Provider at Discharge: Toan Padgett MD Primary Care Provider: Brennen Perez Diagnoses at Discharge Discharge Diagnosis (1) DKA (diabetic ketoacidosis): Status: Acute (2) Hyperglycemia: Status: Acute (3) Acute urinary retention: Status: Acute (4) GERD (gastroesophageal reflux disease): Status: Acute (5) Acute kidney injury: Status: Acute Reason for Visit Reason for Visit: low blood sugar Hospital Course Hospital Course Tad is a 75-year-old male who presented to the hospital with hyperglycemia, severe fatigue. He was found to be in DKA. There was no obvious infection. He reported he had been compliant with his medication, but was unsure of some of his doses. He had recently had his Lantus increased to 50 units twice a day from the [place] but really had not started this yet. He has been thirsty about and has been drinking quite a bit of fruit juice, 1-1/2 to 2 gallons a day. He was not aware that this could increase his sugar significantly. He was found to be in DKA, albeit mild, with increased anion gap acidosis and positive serum ketones. He was rehydrated, placed on an insulin drip, and serial electrolyte measuring occurred. Eventually his anion gap closed, and a diet was initiated. He felt like he had more strength, had no nausea, and was able to be discharged on August 29. He was counseled not to drink significant amounts of fruit juice. A dietary consult was obtained. Education regarding insulin occurred. He is to use Lantus 50 units twice daily, follow a consistent carb diet, use a base of 10 units of Novolin with meals, with sliding scale mild added to this. He was instructed to have a plan for hypoglycemia which was reviewed. He will follow-up with his primary care provider in 3 to 5 days, and bring all his blood sugars he will check before every meal and at bedtime between now and then. No infection was found while in the hospital. He did not have any apparent urinary retention. He does self cath intermittently. Acute kidney injury was found on admission but resolved prior to discharge. He did not have any significant urinary retention on bladder scanning. Physical Exam Narrative: General exam no distress Neck is supple no lymphadenopathy thyromegaly Cardiovascular regular rate and rhythm without murmur Lungs clear Abdomen is soft, positive bowel sounds Extremities no cyanosis clubbing or edema Skin without rash Discharge Data Studies Completed and Pending Completed Studies During Hospitalization Category Date Time Status XR chest 1V portable [id number] Stat Exams 08/28/21 09:50 Completed Pending at discharge Category Date Time Status Arterial Blood Gas Full Stat Lab 08/28/21 10:20 Results Radiology Impressions Chest X-Ray 08/28/21 09:50 Impression: Atherosclerosis and hyperinflation. Laboratory Results WBC 11.4 10^3/uL (4.0-10.0) H 08/29/21 04:23 RBC 3.90 10^6/uL (4.1-5.3) L 08/29/21 04:23 Hgb 11.5 g/dL (11.7-16.6) L 08/29/21 04:23 Hct 35.4 % (42.0-52.0) L 08/29/21 04:23 MCV 90.8 fl (80-94) 08/29/21 04:23 MCH 29.5 pg (28.0-34.0) 08/29/21 04:23 MCHC 32.5 g/dL (30.0-36.0) 08/29/21 04:23 RDW 13.2 % (12.1-15.1) 08/29/21 04:23 Plt Count 190 10^3/cmm (130-400) 08/29/21 04:23 MPV 11.4 fL (7.4-10.4) H 08/29/21 04:23 Neut % (Auto) 60.7 % 08/29/21 04:23 Lymph % (Auto) 29.1 % 08/29/21 04:23 [place] % (Auto) 7.5 % 08/29/21 04:23 Eos % (Auto) 1.0 % 08/29/21 04:23 Baso % (Auto) 0.3 % 08/29/21 04:23 Neut # (Auto) 6.93 10^3/uL (1.8-7.7) 08/29/21 04:23 Lymph # (Auto) 3.3 10^3/uL (0.8-4.8) 08/29/21 04:23 [place] # (Auto) 0.9 10^3/uL (0.2-0.9) 08/29/21 04:23 Eos # (Auto) 0.1 10^3/uL (0.0-0.8) 08/29/21 04:23 Baso # (Auto) 0.0 10^3/uL (0.0-0.1) 08/29/21 04:23 Nucleated RBC % (auto) 0 % 08/29/21 04:23 Nucleated RBCs # 0.0 /100WBC 08/29/21 04:23 Specimen Type Arterial 08/28/21 10:20 Sample Site Brachial, right 08/28/21 10:20 ABG pH 7.41 (7.35-7.45) 08/28/21 10:20 ABG pCO2 31.2 mmHg (35-45) L 08/28/21 10:20 ABG pO2 76.8 mmHg (80.0-100.0) L 08/28/21 10:20 ABG HCO3 19.7 mmol/L (22-26) L 08/28/21 10:20 ABG O2 Saturation 95.4 08/28/21 10:20 ABG Base Excess -4.0 mmol/L (-2.0-2.0) L 08/28/21 10:20 Jasen Test Pos 08/28/21 10:20 A-a O2 Gradient 4.3 mmHg (5-10) L 08/28/21 10:20 Hematocrit 38.7 % (42-52) L 08/28/21 10:20 Hgb O2 Saturation 93.6 % (95-100) L 08/28/21 10:20 Carboxyhemoglobin 0.7 %THgb (0.4-20.1) 08/28/21 10:20 Methemoglobin 1.1 % (0.4-1.5) 08/28/21 10:20 Total Hemoglobin 12.6 g/dL (14-18) L 08/28/21 10:20 Sodium 142.0 mmol/L (131-143) 08/28/21 10:20 Potassium 3.7 mmol/L (3.5-5.0) 08/28/21 10:20 Glucose 253.0 mg/dL (70-115) H 08/28/21 10:20 Ionized Calcium 1.3 mmol/L (1.1-1.4) 08/28/21 10:20 FiO2 21.0 % 08/28/21 10:20 Motion Picture Actor ID Bd 08/28/21 10:20 Sodium 138 mmol/L (136-145) 08/29/21 04:23 Potassium 3.9 mmol/L (3.5-5.1) 08/29/21 04:23 Chloride 106 mmol/L (98-107) 08/29/21 04:23 Carbon Dioxide 21 mmol/L (22-29) L 08/29/21 04:23 Anion Gap 14.9 (5-19) 08/29/21 04:23 BUN 24 mg/dL (8-23) H 08/29/21 04:23 Creatinine 1.1 mg/dL (0.7-1.2) 08/29/21 04:23 GFR Calculation Not Reportable 08/29/21 04:23 Glucose 108 mg/dL (65-115) 08/29/21 04:23 POC Glucose 260 mg/dL (70-110) H 08/29/21 11:08 Calculated Osmolality 291 mOsm/kg (285-295) 08/29/21 04:23 Calcium 9.7 mg/dL (8.5-10.5) 08/29/21 04:23 Magnesium 2.0 mg/dL (1.7-2.3) 08/28/21 22:44 Total Bilirubin 0.4 mg/dL (0.15-1.2) 08/29/21 04:23 AST 16 U/L (0-40) 08/29/21 04:23 ALT 20 U/L (0-41) 08/29/21 04:23 Alkaline Phosphatase 60 IU/L (40-130) 08/29/21 04:23 Creatine Kinase 145 U/L (39-308) 08/28/21 08:53 Total Protein 6.3 g/dL (6.6-8.7) L 08/29/21 04:23 Albumin 3.5 g/dL (3.5-5.2) 08/29/21 04:23 Globulin 2.8 g/dL (1.3-4.6) 08/29/21 04:23 TSH 0.73 uIU/mL (0.27-4.20) 08/28/21 08:53 Urine Color Yellow (Yellow) 08/28/21 16:05 Urine Appearance Clear (CLEAR) 08/28/21 16:05 Urine pH 5 (5-7) 08/28/21 16:05 Ur Specific [place] 1.015 (1.005-1.030) 08/28/21 16:05 Urine Protein Neg (Negative) 08/28/21 16:05 Urine Glucose (UA) 4+ (Normal) H 08/28/21 16:05 Urine Ketones Negative (Negative) 08/28/21 16:05 Urine Blood Neg (Negative) 08/28/21 16:05 Urine Nitrate Negative (Negative) 08/28/21 16:05 Urine Bilirubin Neg (Negative) 08/28/21 16:05 Urine Urobilinogen Norm mg/dL (Negative) 08/28/21 16:05 Ur Leukocyte Esterase Negative (Negative) 08/28/21 16:05 Urine RBC 0-4 /hpf (0-2) H 08/28/21 16:05 Urine WBC 0-4 /hpf (0-5) H 08/28/21 16:05 Ur Squamous Epith Cells 0-4 /hpf (0-5) H 08/28/21 16:05 Amorphous Sediment Not Reportable 08/28/21 16:05 Urine Bacteria None /hpf (NONE) 08/28/21 16:05 Serum Ketones Positive (Negative) H 08/28/21 08:53 Vitals Last Vital Signs Temp 97.8 F 08/29/21 08:00 Pulse 93 08/29/21 12:00 Resp 20 H 08/29/21 12:00 BP 161/101 08/29/21 12:00 Pulse Ox 94 08/29/21 12:00 Discharge Plan Discharge Patient Disposition: Home Condition: Stable Prescriptions: New polyethylene glycol 3350 17 gram Powder In Packet 17 g PO BID Qty: 60 0RF insulin glargine [Lantus Solostar U-100 Insulin] 100 unit/mL (3 mL) insulin pen 50 unit SUBCUT BID Qty: 15 0RF pantoprazole 40 mg Tablet,Delayed Release (Dr/Ec) 40 mg PO DAILY Qty: 30 0RF Continued aspirin 81 mg tablet,delayed release (DR/EC) 81 mg PO QPM 0RF (DME) Blood Glucose Test Strip See Rx Instructions .Route Qty: 100 0RF Rx Instructions: use to check blood glucose 4 times daily (DME) lancets 30 gauge misc See Rx Instructions .Route Qty: 100 0RF Rx Instructions: to use to check blood glucose 4 times daily (DME) pen needle, diabetic [Comfort EZ Pen [place]] 31 gauge x 3/16 needle See Rx Instructions .Route Qty: 100 0RF Rx Instructions: to use with insulin pen atorvastatin [Lipitor] 80 mg Tablet 40 mg PO QPM 0RF prednisone 5 mg Tablet 5 mg PO BID 0RF amlodipine 5 mg Tablet 5 mg PO QAM 0RF lisinopril 40 mg Tablet 20 mg PO DAILY 0RF cholecalciferol (vitamin D3) [Vitamin D3] 50 mcg (2,000 unit) Capsule 100 mcg PO QAM 0RF tamsulosin 0.4 mg capsule 0.4 mg PO QPM 0RF Zytiga 250 mg tablet 250 mg PO QAM 0RF Rx Instructions: must be taken on empty stomach, at least 1 hr before or 2 hrs after a meal/food Changed Novolin R Flexpen 100 unit/mL (3 mL) Insulin Pen 10 unit SUBCUT 3XD Qty: 15 0RF Rx Instructions: Use 10 units as base to take with each meal. Sliding scale insulin, mild is used to calculate additional units needed. Discontinued insulin glargine [Lantus Solostar U-100 Insulin] 100 unit/mL (3 mL) Insulin Pen 40 unit SUBCUT QAM 0RF Discharge Orders: Discharge Order (Routine); Ordered 08/29/21 Ordered By: Toan Padgett Referrals: Brennen Perez [Primary Care Provider] - 4-7 days (Keep track of your blood sugars,Please, bring to your primary care provider on follow-up.) Discharge Diet: Diabetic Discharge Activity: Increase activity as tolerated Patient Instructions: Type 2 Diabetes, Diabetes and Diet, Opioid Safety Activity Restrictions/Additional Instructions: Take all medicine as prescribed. You should be taking your short acting insulin, Novolin, 10 units with each meal with supplemental sliding scale on top of this. You should be taking your Lantus 50 units twice daily. This should be in the morning, and at night. Please follow a consistent carb diet. Avoid drinking large amounts of juice. Have a plan should you become hypoglycemic, to increase your blood sugar. Keep regular follow-up, in 3 to 5 days and bring a copy of your blood sugars that you are taking 4 times daily. This should be taken before meals and at bedtime. Discharge Attestations Time Spent in Discharge Care*: greater than 30 min Quality Metrics Clinical Quality Measures [ No reported AMI, CVA or VTE this stay] Coding Level of Care Code Acute Chg FW DC note Diagnoses DKA (diabetic ketoacidosis) E11.10 Hyperglycemia R73.9 Acute urinary retention R33.8 GERD (gastroesophageal reflux disease) K21.9 Acute kidney injury N17.9
--- NOTE | 2021-08-29 15:40 | PC.NURSE ---
DC instructions given, PIV removed. Pt verbalizes understanding. Meds at bedside. Awaiting ride.
--- NOTE | 2021-08-29 15:56 | PC.NURSE ---
1554 Pt wheeled out to waiting private vehicle. No issues.
[2021-09-18 08:19] LABS: Basophils % 0.3 %; Eosinophils # 0.2 10^3/uL (0.0-0.8); Eosinophils % 1.4 %; Hemoglobin 10.8 g/dL (11.7-16.6); Lymphocytes # 3.7 10^3/uL (0.8-4.8); Lymphocytes % 29.6 %; Mean Corpuscular HGB Conc 32.7 g/dL (30.0-36.0); Mean Corpuscular Hemoglobin 30.2 pg (28.0-34.0); Mean Corpuscular Volume 92.2 fl (80-94); Mean Platelet Volume 11.2 fL (7.4-10.4); Monocytes # 1.1 10^3/uL (0.2-0.9); Monocytes % 9.2 %; Neutrophils # 7.07 10^3/uL (1.8-7.7); Neutrophils % 57.3 %; Nucleated Red Blood Cells % 0.2 %; Platelet Count 195 10^3/cmm (130-400); Red Blood Count 3.58 10^6/uL (4.1-5.3); Red Cell Distribution Width 14.6 % (12.1-15.1); White Blood Count 12.3 10^3/uL (4.0-10.0)
[2021-09-18 09:00] LABS: Alanine Aminotransferase 28 U/L (0-41); Albumin Level 4.1 g/dL (3.5-5.2); Alkaline Phosphatase 82 IU/L (40-130); Blood Urea Nitrogen 22 mg/dL (8-23); Carbon Dioxide 27 mmol/L (22-29); Chloride 104 mmol/L (98-107); Globulin 2.9 g/dL (1.3-4.6); Glucose 126 mg/dL (65-115); Osmolality Calculated 299 mOsm/kg (285-295); Sodium 142 mmol/L (136-145); Total Bilirubin 0.4 mg/dL (0.15-1.2)
[2021-09-18 09:05] LABS: Anion Gap 15.7 (5-19); Potassium 4.7 mmol/L (3.5-5.1)
[2021-09-18 09:06] LABS: Aspartate Amino Transferase 15 U/L (0-40)
== END 2021-08-29 15:54 | disposition home or self-care (01) ==
LOC: ER 09:50 → ICU 11:32
PROVIDERS: Internal Medicine Hematology & Oncology; Admitting Provider Internal Medicine; Emergency Provider Family Medicine; PCP Internal Medicine; Visit Provider Internal Medicine
DX: E11.10 Type 2 diabetes mellitus with ketoacidosis without coma (principal); E11.65 Type 2 diabetes mellitus with hyperglycemia; R33.8 Other retention of urine; K21.9 Gastro-esophageal reflux disease without esophagitis; N17.9 Acute kidney failure, unspecified; Z79.82 Long term (current) use of aspirin; Z79.4 Long term (current) use of insulin; Z86.19 Personal history of other infectious and parasitic diseases; E78.5 Hyperlipidemia, unspecified; I10 Essential (primary) hypertension; Z95.1 Presence of aortocoronary bypass graft; Z87.891 Personal history of nicotine dependence
CPT/HCPCS: 36415; 36416; 36600; 51798; 71045; 80048; 80051; 80053; 81001; 82009; 82330; 82550; 82805; 82962; 83735; 84443; 85025; 90471; 90732; 96365; 96366; 96372; 96375; 99285; G0378; J1644; J1815; J7030; J7050; J7512

== ENCOUNTER 2021-09-18 08:15 | Oncology outpatient (recurring) (ONCR) | payer OTHER, SELFPAY ==
[2021-08-26 10:58] LABS: Basophils # 0.1 10^3/uL (0.0-0.1); Basophils % 0.4 %; Eosinophils # 0.1 10^3/uL (0.0-0.8); Eosinophils % 0.5 %; Hematocrit 34.5 % (42.0-52.0); Hemoglobin 11.8 g/dL (11.7-16.6); Lymphocytes # 3.5 10^3/uL (0.8-4.8); Lymphocytes % 24.6 %; Mean Corpuscular HGB Conc 34.2 g/dL (30.0-36.0); Mean Corpuscular Volume 84.8 fl (80-94); Mean Platelet Volume 12.2 fL (7.4-10.4); Monocytes # 0.8 10^3/uL (0.2-0.9); Monocytes % 5.5 %; Neutrophils # 9.66 10^3/uL (1.8-7.7); Neutrophils % 67.2 %; Nucleated Red Blood Cells % 0 %; Platelet Count 194 10^3/cmm (130-400); Red Blood Count 4.07 10^6/uL (4.1-5.3); Red Cell Distribution Width 12.8 % (12.1-15.1); White Blood Count 14.4 10^3/uL (4.0-10.0)
[2021-08-26 11:22] LABS: Alanine Aminotransferase 34 U/L (0-41); Albumin Level 4.1 g/dL (3.5-5.2); Alkaline Phosphatase 93 IU/L (40-130); Anion Gap 20.3 (5-19); Aspartate Amino Transferase 19 U/L (0-40); Blood Urea Nitrogen 38 mg/dL (8-23); Calcium 10.1 mg/dL (8.5-10.5); Carbon Dioxide 23 mmol/L (22-29); Chloride 93 mmol/L (98-107); Globulin 3.6 g/dL (1.3-4.6); Osmolality Calculated 304 mOsm/kg (285-295); Potassium 5.3 mmol/L (3.5-5.1); Prostate Specific Antigen 0.553 ng/mL (0-4); Sodium 131 mmol/L (136-145); Total Bilirubin 0.6 mg/dL (0.15-1.2); Total Protein 7.7 g/dL (6.6-8.7)
[2021-08-26 11:24] LABS: Glucose 503 mg/dL (65-115)
--- NOTE | 2021-09-18 10:29 | PC.PHAR ---
mr carolynh here today for dose of zoladex. spoke to dr. weathers, will be switching patient to lupron 22.5 q3 months. spoke with Deborah, ok to switch, no need for new PA since patient is [facility].
[2021-09-18] MEDS: leuprolide 22.5 mg Kit IM (10:46)
== END 2021-09-21 23:59 | disposition home or self-care (01) ==
PROVIDERS: Internal Medicine Hematology & Oncology; PCP Internal Medicine; Visit Provider Nurse Practitioner Family
DX: C61 Malignant neoplasm of prostate; Z79.52 Long term (current) use of systemic steroids; Z79.818 Long term (current) use of other agents affecting estrogen receptors and estrogen levels; Z86.19 Personal history of other infectious and parasitic diseases
CPT/HCPCS: 36415; 80053; 84153; 85025; 96402; 99214; 99215; J9217

== ENCOUNTER 2021-10-07 13:24 | Emergency (ER) | payer OTHER, MEDICARE, SELFPAY ==
[2021-10-07 13:40] VITALS: BP 160/80; PULSE 77; RESP 18; TEMP 36.8; O2SAT 100; BMI 26.6
--- NOTE | 2021-10-07 14:47 | W.ED.SKABFB ---
HPI - Skin/Abscess/Foreign Bdy General: Chief complaint: General Medical Stated complaint: Left arm pain Time Seen by Provider: 10/07/21 14:45 Source: patient Mode of arrival: ambulatory Limitations: no limitations History of Present Illness: Patient is a 75-year-old male who presents to ED today for evaluation following a wasp sting to his left arm that occurred a few hours ago. Patient states he initially had some burning sensation around the sting leana but states now it is getting pruritic. He states he also had some mild swelling surrounding the sting but this has improved upon arrival. He does not complain of any shortness of breath or difficulty breathing. He has not noticed any lip/oral swelling or difficulty swallowing. No history of anaphylactic reactions. MD complaint: insect bite/sting Onset (ago): hour(s) Location: LUE Severity: mild Quality: burning and pruritic Relieving factors: none Exacerbating factors: none Context: witnessed insect bite (wasp sting) Associated symptoms: Reports no associated symptoms; Deny nausea or vomiting Treatments prior to arrival: none Review of Systems ENMT: Denies: swelling of lips/tongue Card: Denies: chest pain, palpitations, irregular heart rhythm, lightheadedness, syncope or pre-syncope Resp: Denies: dyspnea GI: Denies: abdominal pain, nausea or vomiting Musc: Reports: extremity pain (L upper arm); Denies: neck pain, back pain, extremity swelling, joint pain or joint swelling Skin/Breast: Reports: other (wasp sting to L arm) Neuro: Denies: numbness in extremities, weakness in extremities or sensory changes [facility] PFSH: Medical History Acute urinary retention Diabetes GERD (gastroesophageal reflux disease) Hepatitis C Hyperlipidemia Hypertension Prostate cancer Surgical History History of tonsillectomy Hx of CABG Family History Mother , at age 80 Diabetes Sister Diabetes Father , at age 78 Heart disease CAD (coronary artery disease) Denies family history of Clotting disorder Dementia Hyperlipidemia Psychiatric illness Chronic kidney disease (CKD) Suicide Anesthesia complication Bleeding disorder Lung disease Cancer Hypertension Stroke Social History Smoking and tobacco status: former smoker Alcohol intake: never Adopted: No Marital status: Single service: Yes Current occupational status: retired History of recent travel: No Physical Exam Const: COMMON NORMALS: no acute distress, average body habitus, no limitations, alert and well nourished GENERAL APPEARANCE: cooperative ORIENTATION/CONSCIOUSNESS: Yes awake, Yes oriented to person, Yes oriented to place and Yes oriented to time HENMT: FACE & SINUS: normal facial exam MOUTH: Normal oral and palatal mucosa present, lip normal, tongue normal and other (no intraoral swelling/angioedema) Resp: COMMON NORMALS: normal respiratory effort and clear to auscultation bilaterally AUSCULTATION: clear to auscultation bilaterally Cardio: COMMON NORMALS: regular rate and regular rhythm RATE: regular rate RHYTHM: regular rhythm Extremity: COMMON NORMALS: normal to inspection and full ROM GENERAL: Yes normal exam except as noted EXTREMITY IMAGE (FRONT): 1. very small wasp sting present; I do not appreciate any surrounding edema or skin color changes Neuro: COMMON NORMALS: moves all extremities, no focal motor deficits and no sensory deficits noted SENSORIUM/ORIENTATION: Yes alert, Yes oriented to person, Yes oriented to place and Yes oriented to time Course Vital Signs: Vital signs: Vital Signs Temperature 98.2 F 10/07/21 13:40 Pulse Rate 72 10/07/21 14:48 Respiratory Rate 16 10/07/21 14:48 Blood Pressure 119/69 10/07/21 14:48 Pulse Oximetry 100 10/07/21 14:48 Oxygen Delivery Me thod 10/07/21 14:48 MDM - Skin/Abscess/Foreign Bdy Medicial Decision Making Patient has no systemic symptoms from his wasp sting. He states he initially had some surrounding edema that is improved/resolved upon arrival to the ED. At this time I would recommend conservative treatment at home as he is experiencing a normal reaction to wasp sting. Conservative treatments could include ice pack, oral/topical Benadryl, or topical hydrocortisone cream. Return to ED precautions given. Discharge Plan Discharge Patient Disposition: Home Clinical Impression: Wasp sting Qualifiers: Encounter type: initial encounter Injury intent: accidental or unintentional Qualified Code(s): T63.461A - Toxic effect of venom of wasps, accidental (unintentional), initial encounter Condition: Stable Prescriptions: No Action aspirin 81 mg tablet,delayed release (DR/EC) 81 mg PO QPM (DME) Blood Glucose Test Strip See Rx Instructions .Route Qty: 100 0RF Rx Instructions: use to check blood glucose 4 times daily (DME) lancets 30 gauge misc See Rx Instructions .Route Qty: 100 0RF Rx Instructions: to use to check blood glucose 4 times daily (DME) pen needle, diabetic [Comfort EZ Pen Roper] 31 gauge x 3/16 needle See Rx Instructions .Route Qty: 100 0RF Rx Instructions: to use with insulin pen Compazine 10 mg tablet 10 mg PO Q4H PRN (Reason: Mild Nausea) Qty: 30 3RF lorazepam 1 mg tablet 0.5 - 1 mg PO Q6H PRN (Reason: Severe Nausea) Qty: 30 3RF atorvastatin [Lipitor] 80 mg Tablet 40 mg PO QPM prednisone 5 mg Tablet 5 mg PO BID amlodipine 5 mg Tablet 5 mg PO QAM lisinopril 40 mg Tablet 20 mg PO DAILY cholecalciferol (vitamin D3) [Vitamin D3] 50 mcg (2,000 unit) Capsule 100 mcg PO QAM tamsulosin 0.4 mg capsule 0.4 mg PO QPM Zytiga 250 mg tablet 250 mg PO QAM Rx Instructions: must be taken on empty stomach, at least 1 hr before or 2 hrs after a meal/food polyethylene glycol 3350 17 gram Powder In Packet 17 g PO BID Qty: 60 0RF pantoprazole 40 mg Tablet,Delayed Release (Dr/Ec) 40 mg PO DAILY Qty: 30 0RF Lantus Solostar U-100 Insulin 100 unit/mL (3 mL) insulin pen 50 unit SUBCUT BID Qty: 15 0RF Novolin R Flexpen 100 unit/mL (3 mL) Insulin Pen 10 unit SUBCUT 3XD Qty: 15 0RF Rx Instructions: Use 10 units as base to take with each meal. Sliding scale insulin, mild is used to calculate additional units needed. Discharge Orders: Discharge ED (Routine); Ordered 10/07/21 Ordered By: Mary Das Referrals: Brennen Perez [Primary Care Provider] - Patient Instructions: Insect Bite or Sting (ED) Coding Level of Care Code ED Section Maintainer for Marianna George
[2021-10-07 14:48] VITALS: BP 119/69; PULSE 72; RESP 16; O2SAT 100
== END 2021-10-07 15:13 | disposition home or self-care (01) ==
PROVIDERS: Emergency Provider Physician Assistant; PCP Internal Medicine
DX: T63.461A Toxic effect of venom of wasps, accidental (unintentional), initial encounter (principal); Z79.82 Long term (current) use of aspirin; Z79.4 Long term (current) use of insulin; E11.9 Type 2 diabetes mellitus without complications; Z86.19 Personal history of other infectious and parasitic diseases; E78.5 Hyperlipidemia, unspecified; I10 Essential (primary) hypertension; Z85.46 Personal history of malignant neoplasm of prostate; Z95.1 Presence of aortocoronary bypass graft; Z87.891 Personal history of nicotine dependence
CPT/HCPCS: 99282

== ENCOUNTER → 2021-11-11 10:37 | Outpatient (BNVA) | payer OTHER, SELFPAY | PROVIDERS: PCP Internal Medicine; Visit Provider Urology | DX: R33.8 Other retention of urine (principal); C61 Malignant neoplasm of prostate | CPT/HCPCS: 51741; 51798; 99213 ==

== ENCOUNTER → 2021-11-17 10:15 | Outpatient (BNVA) | payer OTHER, SELFPAY | PROVIDERS: PCP Internal Medicine; Visit Provider Urology | DX: R33.8 Other retention of urine (principal); C61 Malignant neoplasm of prostate | CPT/HCPCS: 81003 ==

== ENCOUNTER 2021-12-19 09:02 | Oncology outpatient (recurring) (ONCR) | payer OTHER, SELFPAY | END 2021-12-22 23:59 | disposition home or self-care (01) | PROVIDERS: PCP Internal Medicine; Visit Provider Internal Medicine Hematology & Oncology | DX: Z08 Encounter for follow-up examination after completed treatment for malignant neoplasm (principal); Z85.46 Personal history of malignant neoplasm of prostate; Z86.19 Personal history of other infectious and parasitic diseases; Z92.21 Personal history of antineoplastic chemotherapy; Z92.3 Personal history of irradiation; Z87.891 Personal history of nicotine dependence | CPT/HCPCS: 36415; 80053; 84153; 85025; 99213; 99214 ==

== ENCOUNTER → 2022-01-19 08:14 | Outpatient (BNVA) | payer OTHER, SELFPAY | PROVIDERS: PCP Internal Medicine; Visit Provider Podiatrist Foot & Ankle Surgery | DX: E11.8 Type 2 diabetes mellitus with unspecified complications (principal); E11.42 Type 2 diabetes mellitus with diabetic polyneuropathy; G62.9 Polyneuropathy, unspecified; I73.9 Peripheral vascular disease, unspecified; B35.1 Tinea unguium; Z79.4 Long term (current) use of insulin | CPT/HCPCS: 11721; 99203 ==

== ENCOUNTER → 2022-03-30 07:59 | Outpatient (BNVA) | payer OTHER, SELFPAY | PROVIDERS: PCP Internal Medicine; Visit Provider Podiatrist Foot & Ankle Surgery | DX: E11.42 Type 2 diabetes mellitus with diabetic polyneuropathy (principal); G62.9 Polyneuropathy, unspecified; I73.9 Peripheral vascular disease, unspecified; B35.1 Tinea unguium; R60.9 Edema, unspecified; Z79.4 Long term (current) use of insulin | CPT/HCPCS: 11721 ==

== ENCOUNTER 2022-04-22 13:29 | Oncology outpatient (recurring) (ONCR) | payer OTHER, SELFPAY ==
[2022-04-22 14:08] LABS: Basophils % 0.4 %; Eosinophils # 0.3 10^3/uL (0.0-0.8); Eosinophils % 3.3 %; Hematocrit 37.7 % (42.0-52.0); Hemoglobin 11.8 g/dL (11.7-16.6); Lymphocytes # 3.6 10^3/uL (0.8-4.8); Lymphocytes % 38.9 %; Mean Corpuscular HGB Conc 31.3 g/dL (30.0-36.0); Mean Corpuscular Hemoglobin 28.6 pg (28.0-34.0); Mean Corpuscular Volume 91.5 fl (80-94); Mean Platelet Volume 11.1 fL (7.4-10.4); Monocytes # 0.7 10^3/uL (0.2-0.9); Monocytes % 7.6 %; Neutrophils # 4.55 10^3/uL (1.8-7.7); Neutrophils % 49.4 %; Nucleated Red Blood Cells % 0 %; Platelet Count 222 10^3/cmm (130-400); Red Blood Count 4.12 10^6/uL (4.1-5.3); Red Cell Distribution Width 13.1 % (12.1-15.1); White Blood Count 9.2 10^3/uL (4.0-10.0)
[2022-04-22 14:48] LABS: Alanine Aminotransferase 22 U/L (0-41); Albumin Level 4.3 g/dL (3.5-5.2); Alkaline Phosphatase 99 U/L (40-130); Aspartate Amino Transferase 26 U/L (0-40); Blood Urea Nitrogen 14 mg/dL (8-23); Calcium 10.1 mg/dL (8.5-10.5); Carbon Dioxide 27 mmol/L (22-29); Chloride 103 mmol/L (98-107); Globulin 3.1 g/dL (1.3-4.6); Glucose 41 mg/dL (65-115); Osmolality Calculated 287 mOsm/kg (285-295); Sodium 140 mmol/L (136-145); Total Bilirubin 0.5 mg/dL (0.15-1.2); Total Protein 7.4 g/dL (6.6-8.7)
[2022-04-22 14:49] LABS: Testosterone Total 370.4 ng/dL (193-740)
== END 2022-05-22 23:59 | disposition home or self-care (01) ==
PROVIDERS: Nurse Practitioner; PCP Internal Medicine; Visit Provider Internal Medicine Hematology & Oncology
DX: Z08 Encounter for follow-up examination after completed treatment for malignant neoplasm (principal); Z85.46 Personal history of malignant neoplasm of prostate; Z90.89 Acquired absence of other organs; Z92.21 Personal history of antineoplastic chemotherapy; Z92.3 Personal history of irradiation; Z87.891 Personal history of nicotine dependence
CPT/HCPCS: 80053; 84153; 84403; 85025; 99213; 99214

== ENCOUNTER → 2022-06-08 07:42 | Outpatient (BNVA) | payer OTHER, SELFPAY | PROVIDERS: PCP Internal Medicine; Visit Provider Podiatrist Foot & Ankle Surgery | DX: E11.42 Type 2 diabetes mellitus with diabetic polyneuropathy (principal); I73.9 Peripheral vascular disease, unspecified; G62.9 Polyneuropathy, unspecified; B35.1 Tinea unguium; R60.9 Edema, unspecified; Z79.4 Long term (current) use of insulin | CPT/HCPCS: 11721 ==

== ENCOUNTER 2022-07-23 10:58 | Oncology outpatient (recurring) (ONCR) | payer OTHER, SELFPAY ==
[2022-07-23 11:00] VITALS: BP 112/68; PULSE 62; RESP 16; TEMP 36.3; O2SAT 96
[2022-07-23 11:10] LABS: Basophils % 0.4 %; Eosinophils # 0.4 10^3/uL (0.0-0.8); Eosinophils % 4.7 %; Hematocrit 38.1 % (42.0-52.0); Hemoglobin 12.3 g/dL (11.7-16.6); Lymphocytes # 3.2 10^3/uL (0.8-4.8); Mean Corpuscular HGB Conc 32.3 g/dL (30.0-36.0); Mean Corpuscular Hemoglobin 27.9 pg (28.0-34.0); Mean Corpuscular Volume 86.4 fl (80-94); Monocytes # 0.6 10^3/uL (0.2-0.9); Monocytes % 7.7 %; Neutrophils # 3.44 10^3/uL (1.8-7.7); Neutrophils % 44.9 %; Nucleated Red Blood Cells % 0 %; Platelet Count 177 10^3/cmm (130-400); Red Blood Count 4.41 10^6/uL (4.1-5.3); Red Cell Distribution Width 13.8 % (12.1-15.1); White Blood Count 7.7 10^3/uL (4.0-10.0)
[2022-07-23 11:39] LABS: Alanine Aminotransferase 17 U/L (0-41); Albumin Level 4.2 g/dL (3.5-5.2); Alkaline Phosphatase 84 U/L (40-130); Anion Gap 11.4 (5-19); Aspartate Amino Transferase 20 U/L (0-40); Blood Urea Nitrogen 14 mg/dL (8-23); Calcium 9.5 mg/dL (8.5-10.5); Carbon Dioxide 25 mmol/L (22-29); Chloride 109 mmol/L (98-107); Globulin 2.9 g/dL (1.3-4.6); Glucose 89 mg/dL (65-115); Osmolality Calculated 292 mOsm/kg (285-295); Potassium 4.4 mmol/L (3.5-5.1); Sodium 141 mmol/L (136-145); Testosterone Total 457.6 ng/dL (193-740); Total Bilirubin 0.4 mg/dL (0.15-1.2); Total Protein 7.1 g/dL (6.6-8.7)
== END 2022-08-21 23:59 | disposition home or self-care (01) ==
PROVIDERS: Nurse Practitioner Family; PCP Internal Medicine; Visit Provider Internal Medicine Hematology & Oncology
DX: Z85.46 Personal history of malignant neoplasm of prostate; Z90.89 Acquired absence of other organs; Z92.21 Personal history of antineoplastic chemotherapy; Z92.3 Personal history of irradiation; Z87.891 Personal history of nicotine dependence; C61 Malignant neoplasm of prostate; R73.9 Hyperglycemia, unspecified; Z86.19 Personal history of other infectious and parasitic diseases
CPT/HCPCS: 36415; 80053; 84153; 84403; 85025; 99213

== ENCOUNTER → 2022-10-05 08:52 | Outpatient (BNVA) | payer OTHER, SELFPAY | PROVIDERS: PCP Internal Medicine; Visit Provider Podiatrist Foot & Ankle Surgery | DX: B35.1 Tinea unguium (principal); E11.42 Type 2 diabetes mellitus with diabetic polyneuropathy; G62.9 Polyneuropathy, unspecified; I73.9 Peripheral vascular disease, unspecified; R60.9 Edema, unspecified; Z79.4 Long term (current) use of insulin | CPT/HCPCS: 11721 ==

== ENCOUNTER 2022-10-28 12:49 | Oncology outpatient (recurring) (ONCR) | payer OTHER, SELFPAY ==
[2022-10-28 12:50] VITALS: BP 123/77; PULSE 76; RESP 18; TEMP 36.6; O2SAT 95; BMI 25.9
[2022-10-28 15:03] LABS: Basophils % 0.5 %; Eosinophils # 0.3 10^3/uL (0.0-0.8); Eosinophils % 4.6 %; Hematocrit 39.2 % (37-53); Lymphocytes # 3.3 10^3/uL (0.8-4.8); Lymphocytes % 45.1 %; Mean Corpuscular HGB Conc 32.4 g/dL (30-55); Mean Corpuscular Hemoglobin 29.6 pg (27-33); Mean Corpuscular Volume 91.4 fl (82-101); Mean Platelet Volume 11.4 fL (7.4-10.4); Monocytes # 0.7 10^3/uL (0.2-0.9); Monocytes % 8.8 %; Neutrophils # 3.01 10^3/uL (1.8-7.7); Neutrophils % 40.7 %; Nucleated Red Blood Cells % 0 %; Platelet Count 209 10^3/cmm (157-399); Red Blood Count 4.29 10^6/uL (3.85-5.65); Red Cell Distribution Width 14.4 % (12.1-15.1)
[2022-10-28 15:26] LABS: Glucose 108 mg/dL (65-115); Testosterone Total 495.3 ng/dL (193-740); Total Bilirubin 0.6 mg/dL (0.15-1.2)
[2022-10-28 15:37] LABS: Alkaline Phosphatase 104 U/L (40-130); Blood Urea Nitrogen 18 mg/dL (8-23); Calcium 9.9 mg/dL (8.5-10.5); Carbon Dioxide 24 mmol/L (22-29)
[2022-10-28 15:53] LABS: Anion Gap 16.6 (5-19); Chloride 104 mmol/L (98-107); Osmolality Calculated 292 mOsm/kg (285-295); Potassium 4.6 mmol/L (3.5-5.1); Sodium 140 mmol/L (136-145)
[2022-10-28 15:54] LABS: Alanine Aminotransferase 24 U/L (0-41); Albumin Level 4.5 g/dL (3.5-5.2); Aspartate Amino Transferase 28 U/L (0-40); Globulin 2.8 g/dL (1.3-4.6); Total Protein 7.3 g/dL (6.6-8.7)
== END 2022-11-21 23:59 | disposition home or self-care (01) ==
PROVIDERS: PCP Internal Medicine; Visit Provider Internal Medicine Hematology & Oncology
DX: Z85.46 Personal history of malignant neoplasm of prostate (principal); Z90.89 Acquired absence of other organs; Z92.21 Personal history of antineoplastic chemotherapy; Z92.3 Personal history of irradiation; Z87.891 Personal history of nicotine dependence; C61 Malignant neoplasm of prostate; R73.9 Hyperglycemia, unspecified; Z86.19 Personal history of other infectious and parasitic diseases
CPT/HCPCS: 36415; 80053; 84153; 84403; 85025; 99214

== ENCOUNTER → 2022-12-14 08:27 | Outpatient (BNVA) | payer OTHER, SELFPAY | PROVIDERS: PCP Internal Medicine; Visit Provider Podiatrist Foot & Ankle Surgery | DX: B35.1 Tinea unguium (principal); E11.8 Type 2 diabetes mellitus with unspecified complications; E11.42 Type 2 diabetes mellitus with diabetic polyneuropathy; G62.9 Polyneuropathy, unspecified; I73.9 Peripheral vascular disease, unspecified; R60.9 Edema, unspecified | CPT/HCPCS: 11721 ==

== ENCOUNTER 2023-02-11 09:51 | Outpatient (CLI) | payer OTHER, SELFPAY ==
--- NOTE | 2023-02-11 09:55 | US_ITS ---
WS: [id number] RIGHT UPPER QUADRANT ULTRASOUND HISTORY: FOLLOW UP ELEVATED LIVER ENZYMES COMPARISON: None available. Liver: 12.6 cm in length. Normal size liver and echogenicity. No bile duct dilatation or mass. Portal Vein: Normal hepatopetal flow with monophasic waveform. Gallbladder: Normally distended gallbladder with no stones or wall thickening. CBD: 0.3 cm Pancreas: Poorly visualized pancreas. Right kidney: 9.7 cm in length. Normal size and echogenicity. No hydronephrosis or mass. Aorta and IVC: Unremarkable abdominal aorta and IVC. No ascites. IMPRESSION: 1. Normal gallbladder. 2. Poorly visualized gallbladder. 3. No bile duct dilatation.
== END 2023-02-11 09:52 | disposition home or self-care (01) ==
LOC: RAD 09:51
PROVIDERS: PCP Internal Medicine; Visit Provider Family Medicine
DX: R74.8 Abnormal levels of other serum enzymes (principal)
CPT/HCPCS: 76705

== ENCOUNTER → 2023-03-01 08:50 | Outpatient (BNVA) | payer OTHER, SELFPAY | PROVIDERS: PCP Internal Medicine; Visit Provider Podiatrist Foot & Ankle Surgery | DX: B35.1 Tinea unguium (principal); E11.42 Type 2 diabetes mellitus with diabetic polyneuropathy; G62.9 Polyneuropathy, unspecified; I73.9 Peripheral vascular disease, unspecified; R60.9 Edema, unspecified; Z79.4 Long term (current) use of insulin | CPT/HCPCS: 11721 ==

== ENCOUNTER → 2023-05-03 09:28 | Outpatient (BNVA) | payer OTHER, SELFPAY | PROVIDERS: PCP Internal Medicine; Visit Provider Podiatrist Foot & Ankle Surgery | DX: B35.1 Tinea unguium (principal); E11.42 Type 2 diabetes mellitus with diabetic polyneuropathy; G62.9 Polyneuropathy, unspecified; I73.9 Peripheral vascular disease, unspecified; R60.9 Edema, unspecified; Z79.4 Long term (current) use of insulin | CPT/HCPCS: 11721 ==

== ENCOUNTER → 2023-07-01 09:09 | Outpatient (BNVA) | payer OTHER, SELFPAY | PROVIDERS: PCP Internal Medicine; Visit Provider Podiatrist Foot & Ankle Surgery | DX: B35.1 Tinea unguium (principal); E11.42 Type 2 diabetes mellitus with diabetic polyneuropathy; G62.9 Polyneuropathy, unspecified; I73.9 Peripheral vascular disease, unspecified; R60.9 Edema, unspecified; Z79.4 Long term (current) use of insulin | CPT/HCPCS: 11721 ==

== ENCOUNTER → 2023-09-02 09:49 | Outpatient (BNVA) | payer OTHER, SELFPAY | PROVIDERS: PCP Internal Medicine; Visit Provider Podiatrist Foot & Ankle Surgery | DX: B35.1 Tinea unguium (principal); E11.42 Type 2 diabetes mellitus with diabetic polyneuropathy; G62.9 Polyneuropathy, unspecified; I73.9 Peripheral vascular disease, unspecified; R60.9 Edema, unspecified; Z79.4 Long term (current) use of insulin | CPT/HCPCS: 11721 ==

== ENCOUNTER → 2023-11-08 09:30 | Outpatient (BNVA) | payer OTHER, SELFPAY | PROVIDERS: PCP Internal Medicine; Visit Provider Podiatrist Foot & Ankle Surgery | DX: B35.1 Tinea unguium (principal); E11.42 Type 2 diabetes mellitus with diabetic polyneuropathy; G62.9 Polyneuropathy, unspecified; I73.9 Peripheral vascular disease, unspecified; R60.9 Edema, unspecified; Z79.4 Long term (current) use of insulin | CPT/HCPCS: 11721 ==

== ENCOUNTER 2023-11-29 10:48 | Outpatient (CLI) | payer OTHER, SELFPAY | END 2023-11-29 10:49 | disposition home or self-care (01) | LOC: LAB 10:50 | PROVIDERS: PCP Internal Medicine; Visit Provider Urology | DX: Z85.46 Personal history of malignant neoplasm of prostate (principal) | CPT/HCPCS: 36415; 84153 ==

== ENCOUNTER 2024-01-07 09:28 | Outpatient (CLI) | payer OTHER, SELFPAY | END 2024-01-07 09:29 | disposition home or self-care (01) | LOC: LAB 09:34 | PROVIDERS: PCP Family Medicine; Visit Provider Internal Medicine Interventional Cardiology | DX: Z85.46 Personal history of malignant neoplasm of prostate (principal) | CPT/HCPCS: 36415; 84153 ==

== ENCOUNTER → 2024-01-12 10:45 | Outpatient (BNVA) | payer OTHER, SELFPAY | PROVIDERS: PCP Family Medicine; Visit Provider Podiatrist Foot & Ankle Surgery | DX: B35.1 Tinea unguium (principal); E11.42 Type 2 diabetes mellitus with diabetic polyneuropathy; G62.9 Polyneuropathy, unspecified; I73.9 Peripheral vascular disease, unspecified; R60.9 Edema, unspecified; Z79.4 Long term (current) use of insulin | CPT/HCPCS: 11721 ==

== ENCOUNTER 2024-02-21 10:37 | Outpatient (CLI) | payer OTHER, SELFPAY ==
[2024-02-21 11:23] LABS: Prostate Specific Antigen Scr 5.19 ng/mL (0-4)
== END 2024-02-21 10:38 | disposition home or self-care (01) ==
PROVIDERS: PCP Family Medicine; Visit Provider Family Medicine
DX: Z12.5 Encounter for screening for malignant neoplasm of prostate (principal)
CPT/HCPCS: 36415; G0103

== ENCOUNTER → 2024-03-15 11:33 | Outpatient (BNVA) | payer OTHER, SELFPAY | PROVIDERS: PCP Family Medicine; Visit Provider Podiatrist Foot & Ankle Surgery | DX: B35.1 Tinea unguium (principal); E11.42 Type 2 diabetes mellitus with diabetic polyneuropathy; G62.9 Polyneuropathy, unspecified; I73.9 Peripheral vascular disease, unspecified; R60.9 Edema, unspecified; Z79.4 Long term (current) use of insulin | CPT/HCPCS: 11721 ==

== ENCOUNTER → 2024-05-17 10:46 | Outpatient (BNVA) | payer OTHER, SELFPAY | PROVIDERS: PCP Family Medicine; Visit Provider Podiatrist Foot & Ankle Surgery | DX: E11.42 Type 2 diabetes mellitus with diabetic polyneuropathy (principal); B35.1 Tinea unguium; G62.9 Polyneuropathy, unspecified; I73.9 Peripheral vascular disease, unspecified; R60.9 Edema, unspecified; Z79.4 Long term (current) use of insulin | CPT/HCPCS: 11721 ==

== ENCOUNTER → 2024-06-20 08:32 | Outpatient (BNVA) | payer OTHER, SELFPAY | PROVIDERS: PCP Family Medicine; Visit Provider Podiatrist Foot & Ankle Surgery | DX: E11.42 Type 2 diabetes mellitus with diabetic polyneuropathy (principal); B35.1 Tinea unguium; I73.9 Peripheral vascular disease, unspecified; G62.9 Polyneuropathy, unspecified; R60.9 Edema, unspecified; Z79.4 Long term (current) use of insulin | CPT/HCPCS: 99213 ==

== ENCOUNTER 2024-06-26 15:16 | Outpatient (CLI) | payer OTHER, SELFPAY ==
[2024-06-26 17:13] LABS: Prostate Specific Antigen 0.044 ng/mL (0-4)
== END 2024-06-26 15:17 | disposition home or self-care (01) ==
LOC: LAB 15:24
PROVIDERS: PCP Family Medicine; Visit Provider Urology
DX: C61 Malignant neoplasm of prostate (principal)
CPT/HCPCS: 36415; 84153

== ENCOUNTER 2024-07-11 12:08 | Outpatient (CLI) | payer OTHER, SELFPAY ==
--- NOTE | 2024-07-11 12:11 | CTR_ITS ---
PROCEDURE INFORMATION: Exam: CTA Abdominal Aorta and Bilateral Lower Extremities (Run-off) With Contrast Exam date and time: 07/11/2024 12:50 PM Age: 78 years old Clinical indication: Condition or disease; Prior surgery; Surgery date: 6+ months; Surgery type: Heart, bilateral feet; Non healing wound on left big toe x 1 month; Additional info: Non healing wound / check blood flow TECHNIQUE: Imaging protocol: Computed tomographic angiography of the of the abdominal aorta, pelvis and bilateral lower extremities with contrast. 3D rendering (Not supervised by radiologist): MIP and/or 3D reconstructed images were created by the technologist. Total images: [id number] Radiation optimization: All CT scans at this facility use at least one of these dose optimization techniques: automated exposure control; mA and/or kV adjustment per patient size (includes targeted exams where dose is matched to clinical indication); or iterative reconstruction. Contrast material: OMNIPAQUE 350; Contrast volume: 125 ml; Contrast route: INTRAVENOUS (IV); COMPARISON: CT abdomen pelvis wo con [id number] 08/05/2017 8:53 AM RADIATION DOSE METRICS: Total DLP (mGy-cm): 1558.27 FINDINGS: Atherosclerotic burden: Moderate atherosclerotic disease burden is evident. Aorta: No aortic aneurysm. No aortic dissection. 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 Renal arteries: No occlusion or significant stenosis. Right iliac arteries: No occlusion or significant stenosis. Right femoral/popliteal arteries: No occlusion or significant stenosis. Right infrapopliteal arteries: No occlusion or significant stenosis. Left iliac arteries: No occlusion or significant stenosis. Left femoral/popliteal arteries: No occlusion or significant stenosis. Left infrapopliteal arteries: Left infrapopliteal vessels appear weakly opacified into the foot. Other arteries: Right infra popliteal vessels appear weakly opacified into the foot. Liver: No mass. Gallbladder and biliary ducts: Unremarkable. No calcified stones. No ductal dilation. Pancreas: Unremarkable. No mass. No ductal dilation. Spleen: Normal. No splenomegaly. Adrenal glands: Normal. No mass. Kidneys and ureters: Normal. No mass. Stomach and bowel: Unremarkable. No obstruction. No mucosal thickening. Appendix: No evidence of appendicitis. Urinary bladder: Unremarkable. No mass. Reproductive: Unremarkable as visualized. Intraperitoneal space: Unremarkable. No free air. No significant fluid collection. Lymph nodes: No lymphadenopathy. Bones/joints: See Soft tissues finding. Soft tissues: Fat-containing umbilical hernia is present without inflammation. Subcutaneous edema seen in the lower extremities below the knee and into foot. L3-S1 degenerative disc disease is noted with vacuum phenomenon. Osteophytes are noted extending from the vertebrae. No acute spinal pathology is detected. Irregular soft tissue and emphysema appearing at the distal aspect of the left great toe peers beneath nailbed. No osseous erosions detected nor periosteal reaction to suggest osteomyelitis. CT/CT angio abd aorta runof [id number] IMPRESSION: 1. 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 2. Irregular soft tissue and emphysema appearing at the distal aspect of the left great toe peers beneath nailbed. No osseous erosions detected nor periosteal reaction to suggest osteomyelitis. 3. Right infra popliteal vessels appear weakly opacified into the foot. 4. Left infrapopliteal vessels appear weakly opacified into the foot.
[2024-07-11] MEDS: iohexol 350 mg/mL 500 mL Btl (per mL) IV (12:58)
== END 2024-07-11 12:09 | disposition home or self-care (01) ==
LOC: RAD 12:09
PROVIDERS: PCP Family Medicine; Visit Provider Family Medicine
DX: I73.9 Peripheral vascular disease, unspecified (principal); R93.89 Abnormal findings on diagnostic imaging of other specified body structures; I70.8 Atherosclerosis of other arteries; K42.9 Umbilical hernia without obstruction or gangrene; R60.0 Localized edema; M51.379 Other intervertebral disc degeneration, lumbosacral region without mention of lumbar back pain or lower extremity pain; M25.78 Osteophyte, vertebrae; M79.89 Other specified soft tissue disorders; J43.8 Other emphysema
CPT/HCPCS: 75635

== ENCOUNTER → 2024-07-19 08:58 | Outpatient (BNVA) | payer OTHER, SELFPAY | PROVIDERS: PCP Family Medicine; Visit Provider Podiatrist Foot & Ankle Surgery | DX: E11.42 Type 2 diabetes mellitus with diabetic polyneuropathy (principal); B35.1 Tinea unguium; I73.9 Peripheral vascular disease, unspecified; G62.9 Polyneuropathy, unspecified; L03.032 Cellulitis of left toe; Z79.4 Long term (current) use of insulin | CPT/HCPCS: 11721; 11730; 99214 ==

== ENCOUNTER → 2024-08-23 08:25 | Outpatient (BNVA) | payer OTHER, SELFPAY | PROVIDERS: PCP Family Medicine; Visit Provider Podiatrist Foot & Ankle Surgery | DX: I73.9 Peripheral vascular disease, unspecified (principal); B35.1 Tinea unguium; E11.42 Type 2 diabetes mellitus with diabetic polyneuropathy; G62.9 Polyneuropathy, unspecified; L03.032 Cellulitis of left toe; Z79.4 Long term (current) use of insulin | CPT/HCPCS: 99213 ==

== ENCOUNTER → 2024-08-24 12:22 | Outpatient (BNVA) | payer OTHER, SELFPAY | PROVIDERS: PCP Family Medicine; Visit Provider Internal Medicine | DX: R07.9 Chest pain, unspecified (principal) | CPT/HCPCS: 93005; 99204 ==

== ENCOUNTER → 2024-10-19 08:40 | Outpatient (BNVA) | payer OTHER, SELFPAY | PROVIDERS: PCP Family Medicine; Visit Provider Podiatrist Foot & Ankle Surgery | DX: E11.42 Type 2 diabetes mellitus with diabetic polyneuropathy (principal); B35.1 Tinea unguium; I73.9 Peripheral vascular disease, unspecified; G62.9 Polyneuropathy, unspecified; Z79.4 Long term (current) use of insulin | CPT/HCPCS: 99213 ==